=== PATIENT | female | born 1955 | race Caucasian/White ===

== ENCOUNTER 2019-02-15 12:31 | Emergency (ER) | payer MEDICARE, MEDICAID, SELFPAY ==
[2019-02-15] VITALS (7 sets, daily range): BP systolic 100–149; BP diastolic 60–70; PULSE 73–84; RESP 18–24; TEMP 37.1–38; O2SAT 94–99; BMI 36.8
--- NOTE | 2019-02-15 12:47 | DI.RAD.S_ITS ---
PROCEDURE: XR CHEST 2V INDICATIONS: Cough w/fever, hx of asthma. TECHNIQUE: 2 views of the chest were acquired. COMPARISON: [facility], , CHEST 1 VIEW, 02/07/2016, 19:00. FINDINGS: Surgical changes and devices: None. Lungs and pleura: Lungs are clear. No pleural effusions or pneumothorax. Mediastinum: Mediastinal contours are normal. Heart size is normal. Bones and chest wall: No suspicious bony abnormalities. Soft tissues appear unremarkable. IMPRESSION: Normal for age, source of current cough and fever symptoms is not seen. Dictated by: Gurvinder Green M.D. on 02/15/2019 at 13:44 Approved by: Gurvinder Green M.D. on 02/15/2019 at 13:54
[2019-02-15 13:28] LABS: Influenza A - CEPHEID Flu A NEGATIVE (NEGATIVE); Influenza B - CEPHEID Flu B NEGATIVE (NEGATIVE)
--- NOTE | 2019-02-15 14:14 | ED.FEVER ---
HPI - Fever <Gallito SAMM Bonner - Last Filed: 02/15/19 20:45> General Chief Complaint: Fever Stated Complaint: fever,achey,diarrhea,vomiting Time Seen by Provider: 02/15/19 14:13 Source: patient Mode of arrival: Ambulatory Limitations: no limitations History of Present Illness HPI Narrative: This is a 63-year-old female, smoker, who presents to ED withTwo days duration of joint pain, body aches, headaches, difficulty breathing which caused the panic attack this morning, nonproductive cough, fever with T-max of 101.9?, post-tussive vomiting and diarrhea. Patient reports has history of IBS and usually has diarrhea several times a day and denies since her bowel movement or frequency. Patient denies urinary symptoms. Patient has been self treating herself with Tylenol at home and had used albuterol inhaler 2 puffs twice this a.m. within 3 hour. Patient states is unable to tolerate NSAID/ Motrin products due to GI irritation. Patient contacted her primary care physician and was told to going to ED if patient is to use repeated inhaler treatment last than 4 hour. Patient states she lives alone and does not aware of exposure to illness. Patient has history of asthma and uses ProAir routinely. Related Data Home Medications Medication Instructions Recorded Confirmed albuterol sulfate [Proventil HFA] 2 puff INH Q4H PRN #0 02/07/16 02/15/19 hydrocodone-acetaminophen [Birdsnest] 1 tab PO TIDP PRN #0 02/07/16 02/15/19 Potassium Tablet 1 tab PO DAILY 02/15/19 02/15/19 atorvastatin 10 mg PO QPM 02/15/19 02/15/19 multivitamin 1 tab PO DAILY 02/15/19 02/15/19 Previous Rx's Medication Instructions Recorded omeprazole 20 mg PO DAILY 14 Days cap 02/15/19 omeprazole 20 mg PO DAILY 14 Days cap 02/15/19 ondansetron 4 mg PO Q6-8H PRN #7 tab 02/15/19 prednisone 20 mg PO DAILY 4 Days #8 tab 02/15/19 Allergies Allergy/AdvReac Type Severity Reaction Status Date / Time aspirin [ASPIRIN] Allergy Unknown RINGING IN Unverified 06/07/17 12:13 EARS Penicillins [PENICILLINS] Allergy Unknown ITCHING Unverified 06/07/17 12:13 Review of Systems <SAMM Gates - Last Filed: 02/15/19 20:45> Review of Systems Narrative: General: See HPI HEENT: Denies sinus pain, ear pain, sore throat, difficulty swallowing, dizziness. Respiratory: See HPI Cardiovascular: Denies chest pain, palpitations, orthopnea, edema. Gastrointestinal: Reports posttussive emesis and loose stool which is patient's baseline without change. Denies diarrhea, constipation, melena. : Denies dysuria, frequency, incontinence, hematuria, urinary retention. Musculoskeletal: Reports joint body aches. Denies weakness. Skin: Denies rash, skin lesions, or other. Neurologic: Denies weakness, headache, numbness, change in speech, confusion, seizures, incoordination. Psychiatric: No concerning psychosocial issues. 12-point review of systems is negative except for those stated above. Patient History <SAMM Gates - Last Filed: 02/15/19 20:45> Medical History Asthma (Acute) Hepatitis C (Acute) Osteoarthritis (Acute) Surgical History H/O knee surgery (Acute) H/O removal of neck cyst (Acute) History of bilateral tubal ligation (Acute) History of cholecystectomy (Acute) Social History Smoking Status: Current every day smoker Smoking Status: Current every day smoker Substance Use Type: does not use Exam <SAMM Gates - Last Filed: 02/15/19 20:45> Narrative Exam Narrative: GEN: Alert, oriented x 3, well nourished, and in no acute distress. Head: Normal cephalic, atraumatic. No scalp or temporal tenderness, palpable mass or rash. EYES: Pupils are equal, round, and reactive to light and accommodation. Extraocular muscles are intact bilaterally. There is no subconjunctival hemorrhage, exudate and sclera non-icteric. ENT: Bilateral auditory canals and tympanic membranes clear. Hearing grossly intact. Nose without bleeding, purulent discharge or deviation. Facial sinuses nontender to palpate. Mucous membrane moist, no mucosal lesion. Throat without erythema, tonsillar hypertrophy or exudate. Uvula in midline, airway patent. Neck: Trachea in midline. No JVD, non-tender without lymphadenopathy. No masses or thyroid megaly. Supple, non-tender and no meningeal signs. CARDIAC: Normal regular rate and rhythm without murmurs, gallops, or rubs. No chest wall tenderness. No peripheral edema, cyanosis or pallor. Capillary refill is less than 2 seconds. RESPIRATORY: Lungs expiratory wheezing in all lobes. Non-productive cough, no rales, or rhonchi appreciated. No stridor, respiratory distress, increase work of breathing, or accessary muscle used. ABD: Abdomen soft, nontender and non-distended. No guarding or rebound tenderness to palpate. Bowel sounds are normal in all 4 quadrants. There is no palpable masses or organomegaly. EXT: Full painless ROM of all extremities with no loss of sensation, strength, effusion or edema. SKIN: Warm, dry, normal color for patient. No erythema, lesions or rash over visible areas. BACK: Nontender without deformity or crepitance. No flank tenderness. NEUROLOGICAL: Alert and oriented to place, time and person. Sensation and motor function intact bilaterally. No facial droops, dysphasia. PSYCHIATRIC: Good judgement and reason, without hallucinations, abnormal affect or abnormal behaviors during the examination. Patient is not suicidal. Initial Vital Signs Initial Vital Signs: Vital Signs Temperature 99.9 F H 02/15/19 12:39 Pulse Rate 77 02/15/19 12:39 Respiratory Rate 24 02/15/19 12:39 Pulse Oximetry 94 02/15/19 12:39 <Solange Caba DO - Last Filed: 02/16/19 07:17> Initial Vital Signs Initial Vital Signs: Vital Signs Temperature 99.9 F H 02/15/19 12:39 Pulse Rate 77 02/15/19 12:39 Respiratory Rate 24 02/15/19 12:39 Pulse Oximetry 94 02/15/19 12:39 Course <SAMM Gates - Last Filed: 02/15/19 20:45> Orders Ordered: Discontinued Medications Acetaminophen (Tylenol) 650 mg PO NOW ONE Stop: 02/15/19 15:02 Last Admin: 02/15/19 15:09 Dose: 650 mg Documented by: MARGIE Albuterol (Ventolin) 2.5 mg INH NOW ONE Stop: 02/15/19 14:38 Last Admin: 02/15/19 14:45 Dose: 2.5 mg Documented by: DUDLEY Albuterol/Ipratropium (Duoneb) 3 ml INH NOW ONE Stop: 02/15/19 14:40 Last Admin: 02/15/19 14:45 Dose: 3 ml Documented by: DUDLEY Ondansetron HCl (Zofran Odt) 4 mg SL NOW ONE Stop: 02/15/19 14:40 Last Admin: 02/15/19 14:48 Dose: 4 mg Documented by: MARGIE Pantoprazole Sodium (Protonix) 20 mg PO NOW ONE Stop: 02/15/19 14:40 Last Admin: 02/15/19 15:01 Dose: Not Given Documented by: MARGIE Prednisone (Deltasone) 60 mg PO NOW ONE Stop: 02/15/19 14:40 Last Admin: 02/15/19 14:48 Dose: 60 mg Documented by: MARGIE Vital Signs Vital signs: Vital Signs - 8 hr 02/15/19 12:39 02/15/19 14:13 02/15/19 14:30 Temperature 99.9 F H 100.4 F H Pulse Rate 77 74 78 Respiratory Rate 24 18 Blood Pressure [Left Wrist] Blood Pressure [Right Arm] 149/70 H 140/63 Pulse Oximetry 94 99 98 02/15/19 14:45 02/15/19 15:09 02/15/19 15:36 Temperature 100.3 F H 98.8 F Pulse Rate 73 84 Respiratory Rate 18 18 Blood Pressure [Left Wrist] 100/60 Blood Pressure [Right Arm] Pulse Oximetry 97 98 02/15/19 16:07 Temperature 98.8 F Pulse Rate Respiratory Rate Blood Pressure [Left Wrist] Blood Pressure [Right Arm] Pulse Oximetry <Solange Caba, - Last Filed: 02/16/19 07:17> Orders Ordered: Discontinued Medications Acetaminophen (Tylenol) 650 mg PO NOW ONE Stop: 02/15/19 15:02 Last Admin: 02/15/19 15:09 Dose: 650 mg Documented by: MARGIE Albuterol (Ventolin) 2.5 mg INH NOW ONE Stop: 02/15/19 14:38 Last Admin: 02/15/19 14:45 Dose: 2.5 mg Documented by: DUDLEY Albuterol/Ipratropium (Duoneb) 3 ml INH NOW ONE Stop: 02/15/19 14:40 Last Admin: 02/15/19 14:45 Dose: 3 ml Documented by: DUDLEY Ondansetron HCl (Zofran Odt) 4 mg SL NOW ONE Stop: 02/15/19 14:40 Last Admin: 02/15/19 14:48 Dose: 4 mg Documented by: MARGIE Pantoprazole Sodium (Protonix) 20 mg PO NOW ONE Stop: 02/15/19 14:40 Last Admin: 02/15/19 15:01 Dose: Not Given Documented by: MARGIE Prednisone (Deltasone) 60 mg PO NOW ONE Stop: 02/15/19 14:40 Last Admin: 02/15/19 14:48 Dose: 60 mg Documented by: MARGIE Vital Signs Vital signs: Vital Signs - 8 hr 02/15/19 12:39 02/15/19 14:13 02/15/19 14:30 Temperature 99.9 F H 100.4 F H Pulse Rate 77 74 78 Respiratory Rate 24 18 Blood Pressure [Left Wrist] Blood Pressure [Right Arm] 149/70 H 140/63 Pulse Oximetry 94 99 98 02/15/19 14:45 02/15/19 15:09 02/15/19 15:36 Temperature 100.3 F H 98.8 F Pulse Rate 73 84 Respiratory Rate 18 18 Blood Pressure [Left Wrist] 100/60 Blood Pressure [Right Arm] Pulse Oximetry 97 98 02/15/19 16:07 Temperature 98.8 F Pulse Rate Respiratory Rate Blood Pressure [Left Wrist] Blood Pressure [Right Arm] Pulse Oximetry MDM - Fever <Gallito StacyJoy [facility] - Last Filed: 02/15/19 20:45> Differential Diagnosis Differential diagnosis: Likely community acquired pneumonia, viral infection, influenza and other (URI, bronchitis, asthma exacerbation) Medical Records Attestation: I reviewed the patient's medical records. Lab Data Attestation: I reviewed the patient's lab results. Labs: Lab Results 02/15/19 Range/Units 12:42 Influenza A (RT-PCR) Flu a negative (NEGATIVE) Influenza B (RT-PCR) Flu b negative (NEGATIVE) Imaging Data Chest x-ray: Radiologist's impression: [address] [address] XRay Report Signed Patient: Rosie Lewis [facility]#: [id number] : 6Acct:[id number] Age/Sex: 63 / FDate of Service: 02/15/19 Loc: ED Accession Number: [id number] Procedure: XR chest 2V Ordering Provider: Solange Caba D.O. PROCEDURE: XR CHEST 2V INDICATIONS: Cough w/fever, hx of asthma. TECHNIQUE: 2 views of the chest were acquired. COMPARISON: [facility], , CHEST 1 VIEW, 02/07/2016, 19:00. FINDINGS: Surgical changes and devices: None. Lungs and pleura: Lungs are clear. No pleural effusions or pneumothorax. Mediastinum: Mediastinal contours are normal. Heart size is normal. Bones and chest wall: No suspicious bony abnormalities. Soft tissues appear unremarkable. IMPRESSION: Normal for age, source of current cough and fever symptoms is not seen. Dictated by: Gurvinder Green M.D. on 02/15/2019 at 13:44 Approved by: Gurvinder Green M.D. on 02/15/2019 at 13:54 MDM Narrative Medical decision making narrative: This is a 63-year-old female who is current smoker and has history of asthma presents to ED with self reported fever, cough, breathing difficulty, body aches, headaches. Lung sounds were expiratory wheezing to auscultate in no all lobes with frequent coughing. Patient was medicated with prednisone for short burst course given patient's history and nebulizer treatment with DuoNeb and albuterol. Patient also was medicated with Tylenol for low-grade fever while in ED. patient was able to tolerate fluids without nausea or vomiting after Zofran administration. Due to GI sensitivity to steroids and NSAIDs, patient was medicated with Protonix p.o. while in ED. patient reports improved symptoms after the treatments. Flu swab test was negative today. Clear lungs without pneumothorax or pneumonia. Findings were discussed with the patient and patient advised to continue with supportive care with pushing fluids, rest and [id number] Tylenol use. Patient discharged to home with omeprazole, as needed Zofran and short course of prednisone. Patient informed it's okay to use albuterol inhaler infrequently last and every 4 hours with frequent coughing and wheezing. Spacer and teaching were completed by RT. Strict return precautions were discussed with the patient and advised to follow with PCP in 2-3 days. Patient verbalized understanding and agrees with the treatment plan. <Solange Caba, DO - Last Filed: 02/16/19 07:17> Lab Data Labs: Lab Results 02/15/19 Range/Units 12:42 Influenza A (RT-PCR) Flu a negative (NEGATIVE) Influenza B (RT-PCR) Flu b negative (NEGATIVE) Discharge Plan Departure Patient Disposition: Home Clinical Impression: Viral respiratory illness Discharge Date/Time: 02/15/19 16:38 Instructions: DI for Viral Upper Respiratory Infection -- Adult Activity Restrictions/Additional Instructions: You have been diagnosed with [viral illness. Chest x-ray does not show pneumonia. Flu swab was negative. You were treated with nebulizer treatment and Tylenol while in ED.]. What to do: *Take your medications as directed. Please continue with Tylenol for fever and discomfort. You can take up to 4000 mg in 24 hour. Please take prednisone once a day for next 4 days for airway inflammation. You can use albuterol 2 puffs every 4 hours as needed for frequent coughing and short of breath and wheezing. Take omeprazole for next 2 weeks for upset stomach which could be exacerbated by steroids. You can take Mucinex DM for dry or mucousy cough. Please hydrate adequately and increase your intake of fluids. Zofran as needed for nausea. *Follow up with your primary care provider in 2-3 days, call for an appointment. Let them know you were seen in the ED and that we asked you to be seen in follow up. *Return to ED if you have any new, worsening, or concerning symptoms, such as [chest pain, breathing difficulty, unable to tolerate fluids, high fever or any worsening symptoms.]. Prescriptions: New ondansetron 4 mg tablet,disintegrating 4 mg PO Q6-8H PRN (Reason: nausea and vomiting) Qty: 7 RF: 0 prednisone 20 mg tablet 20 mg PO DAILY 4 Days Qty: 8 RF: 0 omeprazole 20 mg capsule,delayed release(DR/EC) 20 mg PO DAILY 14 Days RF: 0 omeprazole 20 mg capsule,delayed release(DR/EC) 20 mg PO DAILY 14 Days RF: 0 No Action hydrocodone-acetaminophen [Birdsnest] 5 MG/325 MG tablet 1 tab PO TIDP PRN (Reason: chronic pain) Qty: 0 RF: 0 albuterol sulfate [Proventil HFA] 90 MCG/PUFF HFA aerosol inhaler 2 puff INH Q4H PRN (Reason: Shortness Of Breath) Qty: 0 RF: 0 atorvastatin 10 mg tablet 10 mg PO QPM RF: 0 multivitamin Tablet 1 tab PO DAILY RF: 0 Potassium Tablet 1 tab PO DAILY RF: 0 Referrals: Breezy Alford MD [Primary Care Provider] -
[2019-02-15] MEDS: ALBUTEROL/IPRATROPIUM 3 ML AMPUL INH (14:45)
[2019-02-15] MEDS: ALBUTEROL 2.5 MG/3 ML NEB (ADULT) INH (14:45)
[2019-02-15] MEDS: ONDANSETRON 4 MG ODT SL (14:48)
[2019-02-15] MEDS: predniSONE 20 MG TABLET 60 MG PO (14:48)
--- NOTE | 2019-02-15 14:49 | PC.NURSE ---
Pt ambulatory to room. mild labored breathing which increases with exertion. reports h/o asthma and a trach for 10 years which has since been removed. CXR obtained and negative findings. Lungs tight with exp wheezes throughout. 100% RA. Speaking in short sentences. RT called for neb. Pt very labored when taking PO pills. Pt reports feeling mild improvement post neb. wheezes still heard throughout on the L side although sounds to be having more air movement. temp 100.3 at triage. states last tylenol at 1130. pt unable to take ibuprofen.
[2019-02-15] MEDS: ACETAMINOPHEN 325 MG TABLET 650 MG PO (15:09)
== END 2019-02-15 16:38 | disposition home or self-care (01) ==
PROVIDERS: Emergency Medicine; Emergency Provider Nurse Practitioner Family; Family Provider Family Medicine; PCP Family Medicine
DX: J06.9 Acute upper respiratory infection, unspecified (principal)
CPT/HCPCS: 71046; 87502; 94150; 94640; 99281; 99283; J7613

== ENCOUNTER 2019-11-15 12:13 | Emergency (ER) | payer MEDICARE, MEDICAID, SELFPAY ==
[2019-11-15] VITALS (12 sets, daily range): BP systolic 138–188; BP diastolic 64–84; PULSE 51–64; RESP 9–20; TEMP 36.9; O2SAT 98–100; BMI 38.0
--- NOTE | 2019-11-15 12:53 | DI.CT.S_ITS ---
PROCEDURE: CT HEAD/BRAIN WO CON INDICATIONS: headache TECHNIQUE: Noncontrast 4.5 mm thick angled axial sections acquired from the foramen magnum to the vertex, with coronal and sagittal reformats. For radiation dose reduction, the following was used: automated exposure control, adjustment of mA and/or kV according to patient size. COMPARISON: None. FINDINGS: Image quality: Excellent. CSF spaces: Basal cisterns are patent. No extra-axial fluid collections. The ventricles are symmetric in size and shape. Brain: No intracranial bleeds or masses. There is cerebral volume loss for age, with resultant ventricular and sulcal prominence. There are periventricular and deep white matter chronic small vessel ischemic changes. There is intracranial internal carotid artery atherosclerosis. Skull and face: Calvarium and visualized facial bones appear intact, without suspicious lesions. Incidental note is made of hyperostosis frontalis. This is not considered to be pathologic in a woman of this age. Sinuses: Visualized sinuses and mastoids are clear. IMPRESSION: Unremarkable intracranial study, without an imaging explanation found for the patient's presenting history of headache. No acute intracranial hemorrhage is seen. No masses or mass effect can be seen. If it would be helpful for clinical management decision making, please consider a dedicated brain MRI for further evaluation (assuming that there is no contraindication). Dictated by: Kodak Moore M.D. on 11/15/2019 at 12:14 Approved by: Kodak Moore M.D. on 11/15/2019 at 12:15
--- NOTE | 2019-11-15 12:57 | ED_ITS ---
HPI - Headache General Chief Complaint: Headache Stated Complaint: headache, dark spots in eyes, flashes Time Seen by Provider: 11/15/19 12:24 Source: patient Mode of arrival: Ambulatory Limitations: no limitations History of Present Illness HPI Narrative: Patient is a 64-year-old female who presents with headache. She has started getting more frequent headaches over the last 1 month she gets some a few times a week and is usually able just to lie down and they go away. However she says this 1 is been ongoing for the last 4 or 5 days he was getting a little bit worse. She has photosensitivity and when it intensifies she has sound sensitivity as well. She has been seeing some spots in her left eye which started yesterday and she has been having some double vision and balance issues as well she occasionally has numbness down her right arm does not currently have numbness and she has no weakness. She denies any chest pain. She says her headache is usually behind her eyes however this 1 is in a slightly different spot more on the right side. MD Complaint: headache Quality: aching Related Data Home Medications Medication Instructions Recorded Confirmed albuterol sulfate [Proventil HFA] 2 puff INH Q4H PRN #0 02/07/16 02/15/19 hydrocodone-acetaminophen [[place]] 1 tab PO TIDP PRN #0 02/07/16 02/15/19 Potassium Tablet 1 tab PO DAILY 02/15/19 02/15/19 atorvastatin 10 mg PO QPM 02/15/19 02/15/19 multivitamin 1 tab PO DAILY 02/15/19 02/15/19 Previous Rx's Medication Instructions Recorded ondansetron 4 mg PO Q6-8H PRN #7 tab 02/15/19 Allergies Allergy/AdvReac Type Severity Reaction Status Date / Time aspirin [ASPIRIN] Allergy Unknown RINGING IN Verified 11/15/19 12:24 EARS Penicillins [PENICILLINS] Allergy Unknown ITCHING Verified 11/15/19 12:24 Review of Systems Review of Systems Narrative: GENERAL: Denies chills, fatigue, malaise, fever, sweats, travel HEENT: Photosensitivity, spots in left Denies sinus pain, ear pain, sore throat, difficulty swallowing, neck pain RESPIRATORY: Denies dyspnea, cough, wheezing, hemoptysis, sputum. CARDIOVASCULAR: Denies chest pain, palpitations, orthopnea, edema GASTROINTESTINAL: Denies nausea, vomiting, abdominal pain, diarrhea, constipation, melena. : Denies dysuria, frequency, incontinence, hematuria, urinary retention, flank pain. MUSCULOSKELETAL: Denies weakness, joint pain, or bony pain SKIN: No rash, no erythema, no pruritus NEUROLOGIC: See HPI PSYCHIATRIC: No concerning psychosocial issues. 12 point review of systems is negative except for those stated above and HPI Patient History Medical History Asthma (Acute) Hepatitis C (Acute) Osteoarthritis (Acute) Surgical History H/O knee surgery (Acute) H/O removal of neck cyst (Acute) History of bilateral tubal ligation (Acute) History of cholecystectomy (Acute) Social History Smoking Status: Current every day smoker Smoking Status: Current every day smoker alcohol intake frequency: holidays/special occasions only Substance Use Type: does not use Exam Initial Vital Signs Initial Vital Signs: Vital Signs Temperature 98.5 F 11/15/19 12:17 Pulse Rate 64 11/15/19 12:17 Respiratory Rate 16 11/15/19 12:17 Blood Pressure 188/78 H 11/15/19 12:17 Pulse Oximetry 100 11/15/19 12:17 GENERAL: Middle-aged female wearing sunglasses in room HEENT: Head atraumatic,EOMI, pupils reactive, face symmetric, moist mucous membranes CARDIOVASCULAR: Regular rate and rhythm without murmurs, rubs or gallops. RESPIRATORY: Breath sounds equal bilaterally, no wheezes rales or rhonchi. ABDOMEN: Soft, nontender. Normoactive bowel sounds all 4 quadrants. No guarding or rebound. EXTREMITIES: Normal range of motion, no clubbing or edema. Neurovascularly intact NEUROLOGICAL: Alert and oriented x4.Normal gait and speech. Cranial nerves II through XII grossly intact. Electrical Controls Assembler strength equal bilaterally lower leg extremity strength equal bilaterally SKIN: Warm, dry, no laceration, no petechiae, no rashes or lesions. Course Orders Ordered: ED Orders 11/15/19 12:20 Basic Metabolic Panel Stat Complete Blood Count AUTO DIFF Stat 11/15/19 12:53 CT head/brain wo con Stat Discontinued Medications Sodium Chloride (Normal Saline 0.9%) 1,000 mls @ 1,000 mls/hr IV BOLUS ONE Stop: 11/15/19 13:48 Last Infusion: 11/15/19 15:12 Dose: 0 mls/hr Documented by: Admin: 11/15/19 12:58 Dose: 1,000 mls/hr Documented by: TISHA Ketorolac Tromethamine (Toradol) 30 mg IV NOW ONE Stop: 11/15/19 13:32 Last Admin: 11/15/19 13:41 Dose: 30 mg Documented by: ELIJAH Vital Signs Vital signs: Vital Signs - 8 hr 11/15/19 12:17 11/15/19 12:19 11/15/19 12:20 Temperature 98.5 F Pulse Rate 64 64 Respiratory Rate 16 20 Blood Pressure 188/78 H 188/78 H Pulse Oximetry 100 100 11/15/19 12:30 11/15/19 12:31 11/15/19 13:20 Temperature Pulse Rate 53 L 51 L 58 L Respiratory Rate 11 L 9 L Blood Pressure 151/66 H Pulse Oximetry 98 98 98 11/15/19 13:21 11/15/19 13:30 11/15/19 13:41 Temperature Pulse Rate 55 L 52 L Respiratory Rate 18 10 L Blood Pressure 146/68 H 143/74 H 154/84 H Pulse Oximetry 98 99 11/15/19 14:00 11/15/19 14:30 11/15/19 15:05 Temperature Pulse Rate 52 L Respiratory Rate 10 L Blood Pressure 138/65 147/64 H 147/64 H Pulse Oximetry 100 MDM - Headache Lab Data Attestation: I reviewed the patient's lab results. Result diagrams: 11/15/19 12:20 11/15/19 12:20 Labs: Lab Results 11/15/19 11/15/19 Range/Units 12:20 12:20 WBC 9.7 (4.5-11.0) X10^3/uL RBC 5.21 H (4.0-5.2) X10^6/uL Hgb 16.3 H (12.0-16.0) g/dL Hct 48.0 H (36-46) % MCV 92.1 (80-100) fL MCH 31.3 (26-34) PG MCHC 34.0 (30-36) % RDW 13.1 (11.6-14.8) % Plt Count 226 (150-400) X10^3/uL Neut % (Auto) 59.7 (50-75) % Lymph % (Auto) 32.4 (25-40) % [place] % (Auto) 5.9 (3-14) % Eos % (Auto) 1.3 L (2-4) % Baso % (Auto) 0.7 (0-2) % Neut # (Auto) 5800 (5650-7102) /uL Lymph # (Auto) 3100 (8116-0095) /uL [place] # (Auto) 600 (0-900) /uL Eos # (Auto) 100 (0-450) /uL Baso # (Auto) 100 (0-100) /uL Sodium 140 (137-145) mmol/L Potassium 4.0 (3.4-5.1) mmol/L Chloride 101 (98-107) mmol/L Carbon Dioxide 31 (22-32) mmol/L BUN 16 (7-17) mg/dL Creatinine 0.65 (0.52-1.04) mg/dL Estimated GFR > 60.0 (>60) mL/min BUN/Creatinine Ratio 24.6 H (6-22) Glucose 96 (80-110) mg/dL Calcium 9.5 (8.4-10.2) mg/dL Imaging Data CT scan - head: Radiologist's Impression: PROCEDURE: CT HEAD/BRAIN WO CON INDICATIONS: headache TECHNIQUE: Noncontrast 4.5 mm thick angled axial sections acquired from the foramen magnum to the vertex, with coronal and sagittal reformats. For radiation dose reduction, the following was used: automated exposure control, adjustment of mA and/or kV according to patient size. COMPARISON: None. FINDINGS: Image quality: Excellent. CSF spaces: Basal cisterns are patent. No extra-axial fluid collections. The ventricles are symmetric in size and shape. Brain: No intracranial bleeds or masses. There is cerebral volume loss for age, with resultant ventricular and sulcal prominence. There are periventricular and deep white matter chronic small vessel ischemic changes. There is intracranial internal carotid artery atherosclerosis. Skull and face: Calvarium and visualized facial bones appear intact, without suspicious lesions. Incidental note is made of hyperostosis frontalis. This is not considered to be pathologic in a woman of this age. Sinuses: Visualized sinuses and mastoids are clear. IMPRESSION: Unremarkable intracranial study, without an imaging explanation found for the patient's presenting history of headache. No acute intracranial hemorrhage is seen. No masses or mass effect can be seen. If it would be helpful for clinical management decision making, please consider a dedicated brain MRI for further evaluation (assuming that there is no contraindication). Dictated by: Kodak Moore M.D. on 11/15/2019 at 12:14 ECG Data Attestation: I personally reviewed and interpreted this ECG as follows: Prior ECG tracings: available for review Interpretation: Normal sinus rhythm rate 57 p.r. interval 152 QRS [address] changes similar to previous EKG in 2016 MDM Narrative Medical decision making narrative: Patient headache is changing an abnormal. Head CT is negative. She is also having some floaters or for black spots in her left thigh. She denies any curtain her loading. She does have a history of a retinal detachment in the right eye earlier this year but this is little bit different. Bedside ultrasound does not show any retinal to had detachment or vitreous humor abnormality in either eye. She has no focal deficits her headache is significantly improved after Toradol. She is able ambulate to the restroom without difficulty. At this time discharge Discharge Plan Departure Patient Disposition: Home Clinical Impression: Migraine Discharge Date/Time: 11/15/19 15:05 Instructions: DI for Migraine Activity Restrictions/Additional Instructions: *You have been diagnosed with migraine headache *What to do: Recommend you talk with her primary care provider about possible evaluation by headache specialist and/or neurologist with increase in headaches. Head CT and blood work are overall reassuring today *Continue to take medications as directed *Follow up with your primary care provider in 2-3 days *Return to ER if you should have worsening headache visual changes weakness dif ficulty speaking or any new, worsening or concerning symptoms Prescriptions: No Action hydrocodone-acetaminophen [[place]] 5 MG/325 MG tablet 1 tab PO TIDP PRN (Reason: chronic pain) Qty: 0 RF: 0 albuterol sulfate [Proventil HFA] 90 MCG/PUFF HFA aerosol inhaler 2 puff INH Q4H PRN (Reason: Shortness Of Breath) Qty: 0 RF: 0 atorvastatin 10 mg tablet 10 mg PO QPM RF: 0 ondansetron 4 mg tablet,disintegrating 4 mg PO Q6-8H PRN (Reason: nausea and vomiting) Qty: 7 RF: 0 multivitamin Tablet 1 tab PO DAILY RF: 0 Potassium Tablet 1 tab PO DAILY RF: 0 Referrals: Breezy Alford MD [Primary Care Provider] -
[2019-11-15] MEDS: SODIUM CHLORIDE 0.9% 1,000 ML 1000 ML IV (12:58)
[2019-11-15 13:02] LABS: BUN Creatinine Ratio 24.6 (6-22); Blood Urea Nitrogen 16 mg/dL (7-17); Calcium 9.5 mg/dL (8.4-10.2); Carbon Dioxide 31 mmol/L (22-32); Chloride 101 mmol/L (98-107); Estimated Glomerular Filt Rate > 60.0 mL/min (>60); Glucose 96 mg/dL (80-110); HEMOLYSIS 16 (0-50); Sodium 140 mmol/L (137-145)
[2019-11-15 13:10] LABS: Add Manual Diff / Slide Review NO; Basophils Absolute Auto 100 /uL (0-100); Basophils Percent Auto 0.7 % (0-2); Eosinophils Absolute Auto 100 /uL (0-450); Eosinophils Percent Auto 1.3 % (2-4); Hemoglobin 16.3 g/dL (12.0-16.0); Lymphocytes Absolute Auto 3100 /uL (1100-4500); Lymphocytes Percent Auto 32.4 % (25-40); Mean Corpuscular Hemoglobin 31.3 PG (26-34); Mean Corpuscular Volume 92.1 fL (80-100); Monocytes Absolute Auto 600 /uL (0-900); Monocytes Percent Auto 5.9 % (3-14); Neutrophils Absolute Auto 5800 /uL (1500-7000); Neutrophils Percent Auto 59.7 % (50-75); Platelet Count 226 X10^3/uL (150-400); Red Blood Cell Count 5.21 X10^6/uL (4.0-5.2); Red Cell Distribution Width 13.1 % (11.6-14.8); White Blood Cell Count 9.7 X10^3/uL (4.5-11.0)
[2019-11-15] MEDS: KETOROLAC 60 MG/2 ML VIAL 30 MG IV (13:41)
== END 2019-11-15 15:05 | disposition home or self-care (01) ==
PROVIDERS: Emergency Provider Emergency Medicine; Family Provider Family Medicine; PCP Family Medicine
DX: G43.909 Migraine, unspecified, not intractable, without status migrainosus (principal); H53.9 Unspecified visual disturbance
CPT/HCPCS: 70450; 80048; 85025; 93005; 93010; 96361; 96374; 99284; J1885

== ENCOUNTER → 2019-12-06 12:05 | Outpatient (CLI) | payer MEDICARE, MEDICAID, SELFPAY ==
--- NOTE | 2019-12-06 | DI.RAD.S_ITS ---
PROCEDURE: XR CERVICAL SPINE 2V OR 3V INDICATIONS: NECK PAIN TECHNIQUE: 3 view(s) of the cervical spine were acquired. COMPARISON: None. FINDINGS: Bones: No fractures or dislocations to the T1 level. The lateral masses of C1 appear intact on the odontoid view. No suspicious bony lesions. Multilevel disc degeneration, severe at the C3-C4, C4-C5 and C5-C6 levels. Moderate multilevel mid and lower cervical spine facet joint arthropathy. Mild multilevel uncovertebral hypertrophy. Soft tissues: No prevertebral soft tissue swelling. Vascular calcifications indicate atherosclerosis. IMPRESSION: Multilevel spondylosis. Dictated by: Sj Duong [facility] Interpreted: Jose Salguero MD on 12/06/2019 at 13:13 Approved by: Jose Salguero M.D. on 12/06/2019 at 17:04
--- NOTE | 2019-12-06 | DI.CT.S_ITS ---
PROCEDURE: CT LUMBAR SPINE WO CON INDICATIONS: Radiculopathy, lumbar region TECHNIQUE: Noncontrast 3 mm thick sections acquired from the T12 level to the sacrum. Sagittal and coronal reformats were constructed. For radiation dose reduction, the following was used: automated exposure control. COMPARISON: [facility], CR, XR CERVICAL SPINE 2V OR 3V, 12/06/2019, 12:32. FINDINGS: Image quality: Excellent. Bones: No acute vertebral body compression fractures. No suspicious lytic or blastic bony lesions. Central spinal caliber is of normal overall caliber. No pars defects. There is accentuated lumbar lordosis noted. There is minimal retrolisthesis seen at L1-2 and L2-3, with mild grade 1 anterolisthesis at L4-5, without associated pars defects. Minimal anterolisthesis is seen at L5-S1. T11-T12: Moderate to severe loss of disc height is seen. Endplate irregularity and sclerosis can be seen. Vacuum disc phenomenon is seen at this level. Moderate generalized disc bulge is seen. There is mild to moderate bilateral neural foraminal narrowing seen, left worse than right. Mild central canal narrowing is seen. T12-L1: Normal. L1-L2: The disc height is well preserved. Mild generalized disc bulge is seen. Moderate bilateral neural foraminal narrowing is seen. Mild central canal narrowing is seen. L2-L3: The disc height is well preserved. Moderate generalized disc bulge is seen. Moderate bilateral neural foraminal narrowing is seen, right worse than left. Mild central canal narrowing is seen. L3-L4: The disc height is well preserved. At least moderate disc bulge is seen. Mild central canal narrowing is seen. Moderate facet hypertrophy is seen, left worse than right. There is moderate left-sided and [id number] right-sided neural foraminal narrowing seen. Moderate central canal narrowing is seen. L4-L5: Mild loss of disc height is seen. Moderate prominent disc bulge is seen. Prominent facet hypertrophy is seen. There is moderate to severe bilateral neural foraminal narrowing seen. Moderate to severe central canal narrowing is seen, as on series 3, image 65. L5-S1: The disc height is relatively well preserved. Mild to moderate disc bulge is seen, with a mild central disc protrusion. Prominent facet hypertrophy is seen at this level. There is at least moderate bilateral neural foraminal narrowing seen, left worse than right. Mild central canal narrowing is seen. Soft tissues: No retroperitoneal masses or hematomas. Visualized aorta is normal in caliber. Incidental note is made of a circumaortic left renal vein. Cholecystectomy clips are seen. IMPRESSION: Multiple levels of lumbar spine degenerative change are seen, which are most prominent at L4-5 and L5-S1. Accentuated lumbar lordosis is noted. Incidental note is made of: Circumaortic left renal vein Cholecystectomy clips Dictated by: Kodak Moore M.D. on 12/06/2019 at 15:36 Approved by: Kodak Moore M.D. on 12/06/2019 at 15:41
== END ==
PROVIDERS: Family Provider Family Medicine; PCP Family Medicine; Referring Provider Registered Nurse; Visit Provider Registered Nurse
DX: M47.26 Other spondylosis with radiculopathy, lumbar region (principal); M47.27 Other spondylosis with radiculopathy, lumbosacral region; M54.2 Cervicalgia; M47.812 Spondylosis without myelopathy or radiculopathy, cervical region; G89.29 Other chronic pain
CPT/HCPCS: 72040; 72131

== ENCOUNTER → 2020-07-11 12:27 | Outpatient (CLI) | payer MEDICARE, MEDICAID, SELFPAY ==
[2020-07-11 13:09] LABS: BUN Creatinine Ratio 21.7 (6-22); Blood Urea Nitrogen 15 mg/dL (7-17); Calcium 9.7 mg/dL (8.4-10.2); Carbon Dioxide 30 mmol/L (22-32); Chloride 104 mmol/L (98-107); Estimated Glomerular Filt Rate > 60.0 mL/min (>60); Glucose 114 mg/dL (80-110); HEMOLYSIS 21 (0-50); Sodium 140 mmol/L (137-145)
== END ==
PROVIDERS: Family Provider Family Medicine; PCP Family Medicine; Referring Provider Internal Medicine; Visit Provider Internal Medicine
DX: R10.12 Left upper quadrant pain (principal)
CPT/HCPCS: 36415; 80048

== ENCOUNTER → 2020-07-15 15:36 | Outpatient (CLI) | payer MEDICARE, MEDICAID, SELFPAY ==
--- NOTE | 2020-07-15 | DI.CT.S_ITS ---
PROCEDURE: CT ABDOMEN PELVIS W CON INDICATIONS: Left upper quadrant pain TECHNIQUE: After the administration of oral and intravenous contrast, 5 mm thick sections acquired from the diaphragms to the symphysis. 5 mm thick coronal and sagittal reformats were performed. For radiation dose reduction, the following was used: automated exposure control, adjustment of mA and/or kV according to patient size. COMPARISON: None. FINDINGS: Image quality: Excellent. ABDOMEN: Lung bases: There is mild atelectasis and scarring in the right middle lobe. Heart size is normal. Solid organs: Evaluation of the liver demonstrates no focal hepatic lesions. The gallbladder is surgically absent. Biliary system is non-dilated. Pancreas enhances normally. No peripancreatic fat stranding or fluid collections. No pancreatic duct dilatation. The spleen is normal in size. No adrenal nodules. There is pelvicaliectasis the renal collecting systems, mild to moderate on the left and mild on the right. The ureters are nondistended. There also likely bilateral parapelvic renal cysts. A small nonobstructing stone is demonstrated within the right kidney within the inferior pole measuring up to 0.3 cm. Peritoneum and bowel: Stomach, small bowel, and colon loops are normal in caliber and wall thickness. The appendix is normal in appearance. There is colonic diverticulosis without acute diverticulitis. No free fluid or air. Nodes and vessels: No retroperitoneal or mesenteric adenopathy. Aorta and inferior vena cava are normal in caliber. Miscellaneous: There are small ventral fat-containing hernias. PELVIS: Genitourinary: Bladder wall thickness is normal. Miscellaneous: No inguinal hernias or adenopathy. Bones: No suspicious bony lesions. No vertebral body compression fractures. IMPRESSION: 1. Bilateral pelvicaliectasis of the renal collecting systems without hydroureter. Findings are suggestive of chronic UPJ obstructions, mild to moderate on the left and mild on the right. There is also suggestion of associated parapelvic renal cysts. Consider further evaluation with a CT IVP. 2. Small nonobstructing left renal stone. No obstructing urinary stones identified. 3. Colonic diverticulosis without acute diverticulitis. Dictated by: Francisco Downey M.D. on 07/16/2020 at 9:46 Approved by: Francisco Doweny M.D. on 07/16/2020 at 10:17
== END ==
PROVIDERS: Family Provider Family Medicine; PCP Family Medicine; Referring Provider Family Medicine; Visit Provider Family Medicine
DX: R10.12 Left upper quadrant pain (principal); N20.0 Calculus of kidney; N28.89 Other specified disorders of kidney and ureter; K57.90 Diverticulosis of intestine, part unspecified, without perforation or abscess without bleeding
CPT/HCPCS: 74177; Q9967

== ENCOUNTER → 2020-09-11 11:03 | Outpatient (CLI) | payer MEDICARE, MEDICAID, SELFPAY ==
[2020-09-11 11:48] LABS: Estimated Glomerular Filt Rate > 60.0 mL/min (>60)
[2020-09-11 14:11] LABS: BUN Creatinine Ratio 27.4 (6-22); Blood Urea Nitrogen 17 mg/dL (7-17)
== END ==
PROVIDERS: Family Provider Family Medicine; PCP Family Medicine; Referring Provider Physician Assistant Medical; Visit Provider Physician Assistant Medical
DX: N13.30 Unspecified hydronephrosis (principal)
CPT/HCPCS: 36415; 82565; 84520

== ENCOUNTER → 2020-09-11 11:14 | Outpatient (CLI) | payer MEDICARE, MEDICAID, SELFPAY ==
--- NOTE | 2020-09-11 11:22 | DI.CT.S_ITS ---
PROCEDURE: CT ABDOMEN PELVIS WO/W CON INDICATIONS: Unspecified hydronephrosis TECHNIQUE: Optional 5 mm thick noncontrast images acquired from the diaphragm to the symphysis pubis. After the administration of intravenous contrast, 5 mm thick images acquired from the diaphragm to the symphysis pubis after a 10-minute delay. 2 mm thick coronal and sagittal reformats were then performed of the kidneys and ureters. For radiation dose reduction, the following was used: automated exposure control, adjustment of mA and/or kV according to patient size. COMPARISON: [facility], CT, CT ABDOMEN PELVIS W CON, 07/15/2020, 16:32. FINDINGS: Image quality: Excellent. Lung bases: There is right middle lobe scars and atelectasis. Heart size is normal. Tiny hiatal hernia. Urinary system: There is a 2 mm stone in the inferior pole of the left kidney. No hydronephrosis. Both kidneys are normal in size. There is normal bilateral renal enhancement. There are bilateral parapelvic renal cysts. Small hypodense cortical nodules in left kidney are also likely cysts. Renal calyces appear normal in morphology when filled with contrast. Opacified portions of both ureters demonstrate normal caliber. Bladder wall thickness is normal. No calcified bladder stones. Other solid organs: Liver is normal in size and enhancement. Gallbladder is surgically absent. Biliary system is non dilated. Pancreas enhances normally. Spleen is normal in size and enhancement. No adrenal nodules. Peritoneum and bowel: Bowel loops demonstrate normal wall thickness and caliber. There are numerous colonic diverticula, most constricted in sigmoid colon. No CT findings to suggest acute diverticulitis. No free fluid or air. Nodes and vessels: No retroperitoneal or mesenteric adenopathy by size criteria. Aorta and inferior vena cava are normal in size. Moderate atherosclerotic calcifications. Abdominal wall: There is a small fat containing ventral hernia and a small fat containing umbilical hernia. Pelvis: No pathologic free pelvic fluid. No inguinal hernias or adenopathy. Bones: No suspicious bony lesions. No vertebral body compression fractures. Grade 1 anterolisthesis of L4 on L5. There are [id number] degenerative changes in the lower thoracic spine and lumbar spine. IMPRESSION: 1. A 2 mm nonobstructive stone in the inferior pole of the left kidney. 2. Bilateral parapelvic renal cysts. No hydronephrosis. There is no findings to suggest UPJ obstruction. 3. Diverticulosis without diverticulitis. 4. A small fat containing ventral hernia. Dictated by: Becky Lima M.D. on 09/11/2020 at 15:10 Approved by: Becky Lima M.D. on 09/11/2020 at 15:19
== END ==
PROVIDERS: Family Provider Family Medicine; PCP Family Medicine; Referring Provider Physician Assistant Medical; Visit Provider Physician Assistant Medical
DX: N13.30 Unspecified hydronephrosis (principal); N20.0 Calculus of kidney; N28.1 Cyst of kidney, acquired; Z90.49 Acquired absence of other specified parts of digestive tract; K57.30 Diverticulosis of large intestine without perforation or abscess without bleeding; K43.9 Ventral hernia without obstruction or gangrene; K42.9 Umbilical hernia without obstruction or gangrene; M43.16 Spondylolisthesis, lumbar region
CPT/HCPCS: 36415; 74178; 82565; 84520; Q9967

== ENCOUNTER 2021-11-04 16:42 | Emergency (ER) | payer MEDICARE, SELFPAY ==
[2021-11-04 17:04] VITALS: BP 114/55; PULSE 68; RESP 18; TEMP 36.6; O2SAT 100
--- NOTE | 2021-11-04 18:35 | DI.US.S_ITS ---
PROCEDURE: US PERIPH VENOUS LOW EXTREM LT INDICATIONS: sent for DVT eval TECHNIQUE: Real-time imaging, as well as color and pulse Doppler interrogation, were performed of the lower extremity deep veins from the inguinal ligament to the popliteal fossa. COMPARISON: None. FINDINGS: The common femoral, femoral and popliteal veins are normally compressible, and free of intraluminal thrombus. Color and pulse Doppler demonstrate normal phasic intraluminal flow. There is normal augmentation response to distal compression maneuver. Calf veins are not well seen. IMPRESSION: No definitive DVT in the left lower extremity. Limited examination. The calf veins are not well visualized Dictated by: Becky Lima M.D. on 11/04/2021 at 19:31 Approved by: Becky Lima M.D. on 11/04/2021 at 19:32
--- NOTE | 2021-11-04 18:35 | ED.EXTPRO ---
HPI - Extremity Problem General Chief complaint: Extremity Problem,Nontraumatic Stated complaint: Told to get checked for DVT Time Seen by Provider: 11/04/21 20:02 Source: patient Mode of arrival: Ambulatory History of Present Illness HPI Narrative: 66-year-old female daily smoker with history of hypertension, hyperlipidemia and known peripheral vascular disease is followed by a vascular surgeon in [place] and presents at their request for evaluation of ongoing left thigh pain. She states that she is been evaluated at some point will likely need stenting of the vasculature of her left leg giving episodes of discoloration of her toes but thus far has not met surgical criteria. She is here today because of pain in her left low back which extends into her hip and anterior thigh. She denies any recent falls or trauma. She denies any numbness, tingling or weakness. She denies loss of control of bowel or bladder and has no lower extremity weakness. Related Data Home Medications Medication Instructions Recorded Confirmed albuterol sulfate 90 mcg/actuation 2 puff INH Q4H PRN Shortness Of 02/07/16 02/15/19 aerosol inhaler (Proventil HFA) Breath ##0 hydrocodone 5 mg-acetaminophen 325 1 tab PO TIDP PRN chronic pain ##0 02/07/16 02/15/19 mg tablet ([place]) Potassium Tablet 1 tab PO DAILY 02/15/19 02/15/19 atorvastatin 10 mg tablet 10 mg PO QPM 02/15/19 02/15/19 multivitamin 1 tab PO DAILY 02/15/19 02/15/19 Previous Rx's Medication Instructions Recorded ondansetron 4 mg disintegrating 4 mg PO Q6-8H PRN nausea and 02/15/19 tablet vomiting #7 tabs cyclobenzaprine 10 mg tablet 10 mg PO TID PRN muscle spasm #14 11/04/21 tabs gabapentin 300 mg capsule 300 mg PO BEDTIME #14 caps 11/04/21 methylprednisolone 4 mg tablets in See Rx Instructions PO .COMPLEX 11/04/21 a dose pack (Medrol (Krishna)) #21 ea Allergies Allergy/AdvReac Type Severity Reaction Status Date / Time aspirin [ASPIRIN] Allergy Unknown RINGING IN Verified 11/15/19 12:24 EARS Penicillins [PENICILLINS] Allergy Unknown ITCHING Verified 11/04/21 17:13 Review of Systems Review of Systems Narrative: GENERAL: Denies chills, fatigue, malaise, fever, sweats. HEENT: Denies sinus pain, ear pain, sore throat, difficulty swallowing, dizziness. RESPIRATORY: Denies dyspnea, cough, wheezing, hemoptysis, sputum. CARDIOVASCULAR: Denies chest pain, palpitations, orthopnea, edema, GASTROINTESTINAL: Denies nausea, vomiting, abdominal pain, diarrhea, constipation, melena. : Denies dysuria, frequency, incontinence, hematuria, urinary retention. MUSCULOSKELETAL: see HPI SKIN: Denies rash, skin lesions, or other NEUROLOGIC: Denies weakness, headache, numbness, change in speech, confusion, seizures, incoordination. PSYCHIATRIC: No concerning psychosocial issues. 12 point review of systems is negative except for those stated above Patient History Medical History Asthma Hepatitis C Osteoarthritis Surgical History H/O knee surgery H/O removal of neck cyst History of bilateral tubal ligation History of cholecystectomy Social History Smoking Status: Current every day smoker Smoking Status: Current every day smoker alcohol intake frequency: holidays/special occasions only Substance Use Type: does not use Exam Narrative Exam Narrative: GENERAL: [66] year old patient appears stated age. Well-developed patient, in mild distress. HEAD: Atraumatic. Normocephalic. EYES: Pupils equal round and reactive. Extraocular motions intact. No scleral icterus. No injection or drainage. ENT: Nose without bleeding, purulent drainage. Throat without erythema, tonsillar hypertrophy or exudate. Airway patent. NECK: Trachea midline. Non tender CARDIOVASCULAR: Regular rate and rhythm without murmurs, gallops, or rubs. RESPIRATORY: Clear to auscultation. Breath sounds equal bilaterally. No wheezes, rales, or rhonchi. GASTROINTESTINAL: Abdomen soft, non-tender, nondistended. EXTREMITIES: Patient complains of left lateral thigh pain, there is no erythema, swelling or pain on palpation. No saddle anesthesia or lower extremity weakness BACK: Nontender without deformity or crepitance. No flank tenderness. NEURO: AOx3. SKIN: No rash or erythema of visible areas Initial Vital Signs Initial Vital Signs: Vital Signs Temperature 97.9 F 11/04/21 17:04 Pulse Rate 68 11/04/21 17:04 Respiratory Rate 18 11/04/21 17:04 Blood Pressure 114/55 L 11/04/21 17:04 Pulse Oximetry 100 11/04/21 17:04 Oxygen Delivery Method 11/04/21 17:04 Course Orders Ordered: Discontinued Medications Cyclobenzaprine HCl (Cyclobenzaprine 10 Mg Tablet) 10 mg PO NOW ONE Stop: 11/04/21 20:19 Last Admin: 11/04/21 20:20 Dose: 10 mg Documented By: ZORA Gabapentin (Gabapentin 300 Mg Capsule) 300 mg PO NOW ONE Stop: 11/04/21 20:13 Last Admin: 11/04/21 20:17 Dose: 300 mg Documented By: ZORA Prednisone (Prednisone 20 Mg Tablet) 40 mg PO NOW ONE Stop: 11/04/21 20:13 Last Admin: 11/04/21 20:17 Dose: 40 mg Documented By: ZORA Vital Signs Vital signs: Vital Signs - 8 hr 11/04/21 17:04 Temperature 97.9 F Pulse Rate 68 Respiratory Rate 18 Blood Pressure 114/55 L Pulse Oximetry 100 Oxygen Delivery Method Room Air MDM - Extremity (Nontraumatic) Imaging Data US - DVT: Radiologist's Impression: [place] [address] Ultrasound Report Signed Patient: Rosie Lewis MR#: [id number] : 1955 Acct:[id number] Age/Sex: 66 / F Date of Service: 11/04/21 Loc: ED Accession Number: [id number] ?? Procedure: US periph venous low extrem lt Ordering Provider: Myron Garcia D.O. PROCEDURE:? US PERIPH VENOUS LOW EXTREM LT ? INDICATIONS:? sent for DVT eval ? TECHNIQUE:? Real-time imaging, as well as color and pulse Doppler interrogation, were performed of the lower extremity deep veins from the inguinal ligament to the popliteal fossa.? ? COMPARISON:? None. ? FINDINGS:? The common femoral, femoral and popliteal veins are normally compressible, and free of intraluminal thrombus.? Color and pulse Doppler demonstrate normal phasic intraluminal flow.? There is normal augmentation response to distal compression maneuver. ?Calf veins are not well seen. ? IMPRESSION:? No definitive DVT in the left lower extremity.? Limited examination.? The calf veins are not well visualized ? ? Dictated by: Becky Lima M.D. on 11/04/2021 at 19:31 ? ? Approved by: Becky Lima M.D. on 11/04/2021 at 19:32 ? MDM Narrative Medical decision making narrative: Patient with known peripheral vascular disease presents with ongoing low back, left hip and left lateral thigh pain in the absence of injury. There is no redness, warmth or swelling though DVT and cellulitis are considered. These are thought less likely given lack of erythema or swelling, lack of findings on imaging and lack of reproducible pain. She does have low back pain and radicular symptoms in the absence of any evidence of spinal cord or cauda equina involvement. Patient will follow closely with her vascular surgeon and she is been given prescriptions for a steroid taper as well as gabapentin. Return precautions discussed and questions answered to their apparent satisfaction Discharge Plan Departure Patient Disposition: Home Clinical Impression: Acute left lumbar radiculopathy Instructions: DI for Lumbar Radiculopathy Activity Restrictions/Additional Instructions: *You have been diagnosed with [left thigh pain most likely due to a lumbar radiculopathy. As we discussed cellulitis and clot were considered but thought unlikely given your exam and negative findings on the ultrasound.] *What to do: *Please continue to take your regular medications as directed. [ ]x New medication prescriptions sent to your pharmacy: [ [facility]] [ ] New medication written as a paper prescription [ ] No new medications given *Please follow up with your primary care provider in 2-3 days, call for an appointment. Let them know you were seen in the Emergency Department and that we ask that you be seen in follow up. We will electronically transmit a record of today's note if your PCP is in our system *Return to Emergency Department if you should have any new, worsening or concerning symptoms, such as [fever greater than 101 F, shaking chills, worsening pain, persistent vomiting or other bothersome symptoms] Prescriptions: New cyclobenzaprine 10 mg tablet 10 mg PO TID PRN (Reason: muscle spasm) Qty: 14 0RF gabapentin 300 mg capsule 300 mg PO BEDTIME Qty: 14 0RF methylprednisolone [Medrol (Krishna)] 4 mg tablets,dose pack See Rx Instructions .ROUTE .COMPLEX Qty: 21 0RF Rx Instructions: orally per package directions No Action hydrocodone-acetaminophen [[place]] 5 MG/325 MG tablet 1 tab PO TIDP PRN (Reason: chronic pain) Qty: 0 albuterol sulfate [Proventil HFA] 90 MCG/PUFF HFA aerosol inhaler 2 puff INH Q4H PRN (Reason: Shortness Of Breath) Qty: 0 atorvastatin 10 mg tablet 10 mg PO QPM Label Comments: TK 1 T PO QPM FOR CHOLESTEROL ondansetron 4 mg tablet,disintegrating 4 mg PO Q6-8H PRN (Reason: nausea and vomiting) Qty: 7 0RF multivitamin Tablet 1 tab PO DAILY Potassium Tablet 1 tab PO DAILY Label Comments: otc Referrals: Nona Butler DO [Primary Care Provider] - Visit Report Forms: Patient Portal/API
[2021-11-04] MEDS: GABAPENTIN 300 MG CAPSULE PO (20:17)
[2021-11-04] MEDS: predniSONE 20 MG TABLET 40 MG PO (20:17)
[2021-11-04] MEDS: CYCLOBENZAPRINE 10 MG TABLET PO (20:20)
== END 2021-11-04 20:21 | disposition home or self-care (01) ==
PROVIDERS: Emergency Provider Emergency Medicine; Family Provider Family Medicine; PCP Family Medicine
DX: M54.16 Radiculopathy, lumbar region (principal)
CPT/HCPCS: 93971; 99283

== ENCOUNTER 2022-03-10 10:48 | Emergency (ER) | payer MEDICARE, SELFPAY ==
[2022-03-10] VITALS (10 sets, daily range): BP systolic 121–164; BP diastolic 68–104; PULSE 54–65; RESP 20–22; TEMP 36.6; O2SAT 91–95
--- NOTE | 2022-03-10 10:56 | DI.RAD.S_ITS ---
PROCEDURE: XR CHEST 1V INDICATIONS: Shortness of breath TECHNIQUE: One view of the chest was acquired. COMPARISON: None. FINDINGS: Surgical changes and devices: None. Lungs and pleura: Lungs are clear. No pleural effusions or pneumothorax. Mediastinum: Mediastinal contours appear normal. Heart size is normal. Bones and chest wall: No suspicious bony lesions. Overlying soft tissues appear unremarkable. IMPRESSION: No acute process. Dictated by: Poornima Cespedes M.D. on 03/10/2022 at 11:33 Approved by: Poornima Cespedes M.D. on 03/10/2022 at 11:33
[2022-03-10] MEDS: ALBUTEROL/IPRATROPIUM 3 ML AMPUL INH (11:11)
[2022-03-10 11:15] LABS: Add Manual Diff / Slide Review NO; Basophils Absolute Auto 100 /uL (0-100); Basophils Percent Auto 0.6 % (0-2); Eosinophils Absolute Auto 100 /uL (0-450); Eosinophils Percent Auto 0.8 % (2-4); Hematocrit 43.1 % (36-46); Hemoglobin 14.6 g/dL (12.0-16.0); Lymphocytes Absolute Auto 1200 /uL (1100-4500); Mean Corpuscular HGB Conc 33.9 % (30-36); Mean Corpuscular Hemoglobin 30.7 PG (26-34); Mean Corpuscular Volume 90.6 fL (80-100); Monocytes Absolute Auto 1100 /uL (0-900); Monocytes Percent Auto 8.5 % (3-14); Neutrophils Absolute Auto 9900 /uL (1500-7000); Neutrophils Percent Auto 80.1 % (50-75); Platelet Count 190 X10^3/uL (150-400); Red Blood Cell Count 4.76 X10^6/uL (4.0-5.2); Red Cell Distribution Width 13.2 % (11.6-14.8); White Blood Cell Count 12.4 X10^3/uL (4.5-11.0)
--- NOTE | 2022-03-10 11:19 | ED_ITS ---
HPI - SOB/Dyspnea General Chief Complaint: Shortness of Breath/Dyspnea Stated Complaint: Sent by [facility] Congestion/fever/cough T-3 Time Seen by Provider: 03/10/22 11:08 Source: patient Mode of arrival: Ambulatory Limitations: no limitations History of Present Illness HPI Narrative: Patient is a 66-year-old female history of COPD hyperlipidemia, presenting today with 3 days of increasing difficulty breathing. She reports having body aches fevers chills and cough. She feels like she is gotten more short of breath over the last couple of days. She reports worsening orthopnea but no peripheral edema. She describes chest tightness no actual pain or palpitations. She has inhalers at home but they have not been helping. She is trying to cough but can not get anything up. Denies any abdominal pain nausea or vomiting no palpitations no flank pain. Related Data Home Medications Medication Instructions Recorded Confirmed albuterol sulfate 90 mcg/actuation 2 puff INH Q4H PRN Shortness Of 02/07/16 02/15/19 aerosol inhaler (Proventil HFA) Breath ##0 hydrocodone 5 mg-acetaminophen 325 1 tab PO TIDP PRN chronic pain ##0 02/07/16 02/15/19 mg tablet ([place]) Potassium Tablet 1 tab PO DAILY 02/15/19 02/15/19 atorvastatin 10 mg tablet 10 mg PO QPM 02/15/19 02/15/19 multivitamin 1 tab PO DAILY 02/15/19 02/15/19 Previous Rx's Medication Instructions Recorded ondansetron 4 mg disintegrating 4 mg PO Q6-8H PRN nausea and 02/15/19 tablet vomiting #7 tabs cyclobenzaprine 10 mg tablet 10 mg PO TID PRN muscle spasm #14 11/04/21 tabs gabapentin 300 mg capsule 300 mg PO BEDTIME #14 caps 11/04/21 methylprednisolone 4 mg tablets in See Rx Instructions PO .COMPLEX 11/04/21 a dose pack (Medrol (Krishna)) #21 ea albuterol sulfate 2.5 mg/3 mL 2.5 mg (3 mL) inhalation QID PRN 03/10/22 (0.083 %) solution for nebulization bronchospasm #75 mL doxycycline hyclate 100 mg capsule 100 mg PO BID #14 caps 03/10/22 prednisone 10 mg tablet 10 mg PO DAILY #30 tabs 03/10/22 Allergies Allergy/AdvReac Type Severity Reaction Status Date / Time Penicillins [PENICILLINS] Allergy Unknown ITCHING Verified 03/10/22 10:52 Review of Systems Review of Systems ROS Unobtainable: All systems reviewed & are unremarkable except as noted in HPI and below Patient History Medical History (Updated 03/10/22 @ 13:47 by Desi Cosme DO) Asthma Hepatitis C Osteoarthritis Surgical History H/O knee surgery H/O removal of neck cyst History of bilateral tubal ligation History of cholecystectomy Social History Smoking Status: Current every day smoker Smoking Status: Current every day smoker alcohol intake frequency: holidays/special occasions only Substance Use Type: does not use Exam Initial Vital Signs Initial Vital Signs: Vital Signs Temperature 97.9 F 03/10/22 10:52 Pulse Rate 61 03/10/22 10:52 Respiratory Rate 20 03/10/22 10:52 Blood Pressure 122/69 03/10/22 10:52 Pulse Oximetry 93 03/10/22 10:52 Oxygen Delivery Method 03/10/22 10:52 GENERAL: Alert pleasant 66-year-old female appears in [id number] respiratory distress HEENT: Head atraumatic,EOMI, pupils reactive, face symmetric, moist mucous membranes CARDIOVASCULAR: Regular rate and rhythm without murmurs, rubs or gallops. RESPIRATORY: Decreased breath sounds bilaterally wheezing speaks in 5 word sentences but is having some mild conversational dyspnea ABDOMEN: Soft, nontender. Normoactive bowel sounds all 4 quadrants. No guarding or rebound. EXTREMITIES: Normal range of motion, no clubbing or edema. Neurovascularly intact NEUROLOGICAL: Alert and oriented x4.Normal gait and speech. SKIN: Warm, dry, no laceration, no petechiae, no rashes or lesions. Course Orders Ordered: Discontinued Medications Albuterol (Albuterol 2.5 Mg/3 Ml Neb (Adult)) 2.5 mg INH [id number] PRN PRN Reason: Shortness Of Breath Last Admin: 03/10/22 11:30 Dose: 2.5 mg Documented By: SAT Albuterol/Ipratropium (Albuterol/Ipratropium 3 Ml Ampul) 3 ml INH Q1H PRN PRN Reason: Shortness Of Breath Last Admin: 03/10/22 11:11 Dose: 3 ml Documented By: SAT Methylprednisolone (Methylprednisolone 125 Mg/2 Ml Vial) 125 mg IV NOW ONE Stop: 03/10/22 11:21 Last Admin: 03/10/22 11:39 Dose: 125 mg Documented By: CTS Vital Signs Vital signs: Vital Signs - 8 hr 03/10/22 11:30 03/10/22 12:00 03/10/22 12:01 Pulse Rate 60 54 L 54 L Blood Pressure Pulse Oximetry 93 92 93 Oxygen Delivery Method 03/10/22 12:01 03/10/22 12:21 03/10/22 12:21 Pulse Rate 64 Blood Pressure 135/89 153/104 H Pulse Oximetry 92 Oxygen Delivery Method 03/10/22 13:53 Pulse Rate 65 Blood Pressure 121/68 Pulse Oximetry 91 Oxygen Delivery Method Room Air MDM - SOB/Dyspnea Lab Data Result diagrams: 03/10/22 11:06 03/10/22 11:06 Labs: Lab Results 03/10/22 03/10/22 03/10/22 Range/Units 10:52 11:06 11:06 WBC 12.4 H (4.5-11.0) X10^3/uL RBC 4.76 (4.0-5.2) X10^6/uL Hgb 14.6 (12.0-16.0) g/dL Hct 43.1 (36-46) % MCV 90.6 (80-100) fL MCH 30.7 (26-34) PG MCHC 33.9 (30-36) % RDW 13.2 (11.6-14.8) % Plt Count 190 (150-400) X10^3/uL Neut % (Auto) 80.1 H (50-75) % Lymph % (Auto) 10.0 L (25-40) % Sutter % (Auto) 8.5 (3-14) % Eos % (Auto) 0.8 L (2-4) % Baso % (Auto) 0.6 (0-2) % Neut # (Auto) 9900 H (7488-8787) /uL Lymph # (Auto) 1200 (2432-3038) /uL Sutter # (Auto) 1100 H (0-900) /uL Eos # (Auto) 100 (0-450) /uL Baso # (Auto) 100 (0-100) /uL PT 12.6 (10.1-12.7) SECONDS INR 1.1 (0.9-1.3) Sodium (137-145) mmol/L Potassium (3.4-5.1) mmol/L Chloride (98-107) mmol/L Carbon Dioxide (22-32) mmol/L BUN (7-17) mg/dL Creatinine (0.52-1.04) mg/dL Estimated GFR (>60) mL/min BUN/Creatinine Ratio (6-22) Glucose (80-110) mg/dL Lactate (0.7-2.1) mmol/L Calcium (8.4-10.2) mg/dL Total Bilirubin (0.2-1.3) mg/dL AST (14-36) IU/L ALT (<35) IU/L Alkaline Phosphatase (38-126) U/L Troponin I (0.01-0.034) ng/mL NT-Pro-B Natriuret Pep (<125) pg/mL Total Protein (6.3-8.2) g/dL Albumin (3.5-5.0) g/dL Globulin (1.7-4.1) g/dL Albumin/Globulin Ratio (1.0-2.8) Procalcitonin (<0.5) ng/mL SARS-CoV-2 (PCR) Negative (Negative) Influenza A (RT-PCR) Flu a negative (NEGATIVE) Influenza B (RT-PCR) Flu b negative (NEGATIVE) RSV (PCR) Negative (Negative) 03/10/22 03/10/22 03/10/22 Range/Units 11:06 11:06 11:06 WBC (4.5-11.0) X10^3/uL RBC (4.0-5.2) X10^6/uL Hgb (12.0-16.0) g/dL Hct (36-46) % MCV (80-100) fL MCH (26-34) PG MCHC (30-36) % RDW (11.6-14.8) % Plt Count (150-400) X10^3/uL Neut % (Auto) (50-75) % Lymph % (Auto) (25-40) % Sutter % (Auto) (3-14) % Eos % (Auto) (2-4) % Baso % (Auto) (0-2) % Neut # (Auto) (2260-4873) /uL Lymph # (Auto) (3157-9982) /uL Sutter # (Auto) (0-900) /uL Eos # (Auto) (0-450) /uL Baso # (Auto) (0-100) /uL PT (10.1-12.7) SECONDS INR (0.9-1.3) Sodium 137 (137-145) mmol/L Potassium 4.3 (3.4-5.1) mmol/L Chloride 101 (98-107) mmol/L Carbon Dioxide 27 (22-32) mmol/L BUN 11 (7-17) mg/dL Creatinine 0.57 (0.52-1.04) mg/dL Estimated GFR > 60 (>60) mL/min BUN/Creatinine Ratio 19.3 (6-22) Glucose 100 (80-110) mg/dL Lactate 1.1 (0.7-2.1) mmol/L Calcium 8.9 (8.4-10.2) mg/dL Total Bilirubin 0.5 (0.2-1.3) mg/dL AST 45 H (14-36) IU/L ALT 29 (<35) IU/L Alkaline Phosphatase 65 (38-126) U/L Troponin I < 0.012 (0.01-0.034) ng/mL NT-Pro-B Natriuret Pep 212 H (<125) pg/mL Total Protein 7.8 (6.3-8.2) g/dL Albumin 4.4 (3.5-5.0) g/dL Globulin 3.4 (1.7-4.1) g/dL Albumin/Globulin Ratio 1.3 (1.0-2.8) Procalcitonin 0.05 (<0.5) ng/mL SARS-CoV-2 (PCR) (Negative) Influenza A (RT-PCR) (NEGATIVE) Influenza B (RT-PCR) (NEGATIVE) RSV (PCR) (Negative) Imaging Data Chest x-ray: Radiologist's Impression: Sunburst,Susan Giovani MR#: [id number] : 1955 Acct:[id number] Age/Sex: 66 / F Date of Service: 03/10/22 Loc: ED Accession Number: [id number] ?? Procedure: XR chest 1V Ordering Provider: Desi Cosme D.O. PROCEDURE:? XR CHEST 1V ? INDICATIONS:? Shortness of breath ? TECHNIQUE:? One view of the chest was acquired.? ? COMPARISON:? None. ? FINDINGS:? ? Surgical changes and devices:? None.? ? Lungs and pleura:? Lungs are clear.? No pleural effusions or pneumothorax.? ? Mediastinum:? Mediastinal contours appear normal.? Heart size is normal.? ? Bones and chest wall:? No suspicious bony lesions.? Overlying soft tissues appear unremarkable.? ? IMPRESSION:? No acute process. ? ? Dictated by: Poornima Cespedes M.D. on 03/10/2022 at 11:33 ? ? Approved by: Poornima Cespedes M.D. on 03/10/2022 at 11:33 ? ECG Data Interpretation: Normal sinus rhythm rate 65 DE interval 148 QRS [address] changes no T- wave inversions similar to previous EKG in 2020 MDM Narrative Medical decision making narrative: Patient is a 66-year-old female history of COPD hyperlipidemia presenting today with cough and chest tightness. She received DuoNeb did actually help her breathing almost immediately. She is also given Solu-Medrol and a 2nd albuterol treatment. Overall resting much more comfortably significantly less tachypneic. Blood work does show mild leukocytosis with mild left shift electrolytes and kidney function are within normal limits procalcitonin 0.05 a lactate of 1.1. She is no evidence of sepsis. BNP was also 200 not suggestive of congestive heart failure. Not having symptoms of acute coronary syndrome although she is at risk. Her chest x-ray is negative for pneumonia. After bronchodilators work of breathing improved significantly however at rest she was pretty consistently 89%. Ambulation trial she did very well O2 went up and she wanted to go home. She has a nebulizer at home but without any albuterol. Will discharge her home on steroid taper antibiotics and albuterol MDM CC: Shortness of breath Complicating co-morbidities: COPD hyperlipidemia hypertension Corroborating data: Data collected from: [ ] Medical records reviewed: Previous ED visits Differential considered: COPD exacerbation, pneumonia, pneumothorax, pulmonary embolism, acute coronary syndrome, sepsis, congestive heart failure Exam documented above, pertinent findings include: Decreased breath sounds bilaterally tachypnea conversational dyspnea Lab Test results independently reviewed as above. Pertinent findings: As above Independently reviewed EKG as above Imaging studies independently reviewed: Consultations: None Treatments: Solu-Medrol bronchodilators Re-evaluations: Improved after bronchodilators Discussion: Patient has a history of smoking no official diagnosis of COPD however she improved significantly with bronchodilators and steroids. Other causes were considered however with significant improvement history of smoking this is most likely COPD exacerbation Diagnosis: COPD exacerbation Disposition: see below, along with detailed discharge instructions that have been reviewed with patient as well as indications for ED re-evaluation and additional outpatient follow up Discharge Plan Departure Patient Disposition: Home Clinical Impression: COPD exacerbation Instructions: Chronic Obstructive Pulmonary Disease Activity Restrictions/Additional Instructions: *You have been diagnosed with COPD exacerbation *What to do: At this time I hope that you start feeling better. Use your nebulizer every 4 hours for the next 1-2 days *Continue to take medications as directed--> SENT TO [facility] [place] Prednisone 40 mg for 3 days, 30 mg for 3 days, 20 mg for 3 days, 10 mg for 3 days Albuterol either inhaler or nebulizer every 4 hours if needed Doxycycline 100 mg twice a day for 7 days *Follow up with your primary care provider in 2-3 days or call [phone] *Return to ER if you should have increasing shortness of breath chest pain difficulty breathing or any new, worsening or concerning symptoms Prescriptions: New prednisone 10 mg tablet 10 mg PO DAILY Qty: 30 0RF Rx Instructions: day 1-3: 40 mg once a day day 4-6: 30 mg once a day day 7-9: 20 mg once a day day 10-12: 10 mg once a day doxycycline hyclate 100 mg capsule 100 mg PO BID Qty: 14 0RF albuterol sulfate 2.5 mg /3 mL (0.083 %) solution for nebulization 2.5 mg inhalation QID PRN (Reason: bronchospasm) Qty: 75 0RF No Action hydrocodone-acetaminophen [[place]] 5 MG/325 MG tablet 1 tab PO TIDP PRN (Reason: chronic pain) Qty: 0 albuterol sulfate [Proventil HFA] 90 MCG/PUFF HFA aerosol inhaler 2 puff INH Q4H PRN (Reason: Shortness Of Breath) Qty: 0 atorvastatin 10 mg tablet 10 mg PO QPM Label Comments: TK 1 T PO QPM FOR CHOLESTEROL ondansetron 4 mg tablet,disintegrating 4 mg PO Q6-8H PRN (Reason: nausea and vomiting) Qty: 7 0RF multivitamin Tablet 1 tab PO DAILY Potassium Tablet 1 tab PO DAILY Label Comments: otc cyclobenzaprine 10 mg tablet 10 mg PO TID PRN (Reason: muscle spasm) Qty: 14 0RF gabapentin 300 mg capsule 300 mg PO BEDTIME Qty: 14 0RF methylprednisolone [Medrol (Krishna)] 4 mg tablets,dose pack See Rx Instructions .ROUTE .COMPLEX Qty: 21 0RF Rx Instructions: orally per package directions Referrals: Wesley Díaz MD [Primary Care Provider] - Stand Alone Forms: Patient Portal/API
[2022-03-10 11:26] LABS: INR 1.1 (0.9-1.3); Prothrombin Time 12.6 SECONDS (10.1-12.7)
[2022-03-10 11:29] LABS: Lactate (Lactic Acid) 1.1 mmol/L (0.7-2.1)
[2022-03-10 11:30] LABS: Alanine Aminotransferase 29 IU/L (<35); Albumin 4.4 g/dL (3.5-5.0); Albumin Globulin Ratio 1.3 (1.0-2.8); Alkaline Phosphatase 65 U/L (38-126); Aspartate Aminotransferase 45 IU/L (14-36); BUN Creatinine Ratio 19.3 (6-22); Bilirubin Total 0.5 mg/dL (0.2-1.3); Blood Urea Nitrogen 11 mg/dL (7-17); Calcium 8.9 mg/dL (8.4-10.2); Carbon Dioxide 27 mmol/L (22-32); Chloride 101 mmol/L (98-107); Estimated Glomerular Filt Rate > 60 mL/min (>60); Globulin 3.4 g/dL (1.7-4.1); Glucose 100 mg/dL (80-110); HEMOLYSIS < 15 (0-50); Potassium 4.3 mmol/L (3.4-5.1); Sodium 137 mmol/L (137-145); Total Protein 7.8 g/dL (6.3-8.2)
[2022-03-10] MEDS: ALBUTEROL 2.5 MG/3 ML NEB (ADULT) INH (11:30)
[2022-03-10] MEDS: methylPREDNISolone 125 MG/2 ML VIAL IV (11:39)
[2022-03-10 11:42] LABS: NT-proBNP (BNP-Adult 18+) 212 pg/mL (<125); Troponin I < 0.012 ng/mL (0.01-0.034)
[2022-03-10 11:44] LABS: Influenza A - CEPHEID Flu A NEGATIVE (NEGATIVE); Influenza B - CEPHEID Flu B NEGATIVE (NEGATIVE); Respiratory Syncytial Virus Negative (Negative)
[2022-03-10 11:51] LABS: Procalcitonin 0.05 ng/mL (<0.5)
--- NOTE | 2022-03-10 12:27 | PC.NURSE ---
pt on arrival with tachypnea, pursed lipped breathing, wheezing with h/o asthma, and speaking in 2-3 word sentences. Received multiple neb treatments by RT with improvement. RR even and unlabored and wheezing and air movement has significantly improved.
[2022-03-10 12:41] LABS: COVID-19 CEPHEID 4-PLEX PCR Negative (Negative)
== END 2022-03-10 13:48 | disposition home or self-care (01) ==
PROVIDERS: Emergency Provider Emergency Medicine; Family Provider Family Medicine; PCP Internal Medicine
DX: J44.1 Chronic obstructive pulmonary disease with (acute) exacerbation (principal); Z20.822 Contact with and (suspected) exposure to COVID-19
CPT/HCPCS: 0241U; 36415; 71045; 80053; 83605; 83880; 84145; 84484; 85025; 85610; 87040; 93005; 93010; 94640; 96374; 99284; J2930; J7613

== ENCOUNTER 2022-03-15 15:14 | Emergency (ER) | payer MEDICARE, SELFPAY ==
[2022-03-15] VITALS (72 sets, daily range): BP systolic 118–232; BP diastolic 54–152; PULSE 42–103; RESP 15–33; TEMP 36.9; O2SAT 90–97; BMI 39.8
--- NOTE | 2022-03-15 15:24 | DI.RAD.S_ITS ---
PROCEDURE: XR CHEST 1V INDICATIONS: HTN, SOB TECHNIQUE: One view of the chest was acquired. COMPARISON: [facility], CR, XR CHEST 1V, 03/10/2022, 11:02. FINDINGS: Surgical changes and devices: None. Lungs and pleura: Lungs are clear. No pleural effusions or pneumothorax. Mediastinum: Mediastinal contours appear normal. Heart size is normal. Bones and chest wall: No suspicious bony lesions. Overlying soft tissues appear unremarkable. IMPRESSION: No acute pulmonary process. Dictated by: Ivonne Smith M.D. on 03/15/2022 at 16:42 Approved by: Ivonne Smith M.D. on 03/15/2022 at 16:42
--- NOTE | 2022-03-15 15:24 | DI.CT.S_ITS ---
PROCEDURE: CT HEAD/BRAIN WO CON INDICATIONS: severe LINDO TECHNIQUE: Noncontrast 4.5 mm thick angled axial sections acquired from the foramen magnum to the vertex, with coronal and sagittal reformats. For radiation dose reduction, the following was used: automated exposure control, adjustment of mA and/or kV according to patient size. COMPARISON: [facility], CT, CT HEAD/BRAIN WO CON, 11/15/2019, 12:57. FINDINGS: Image quality: Excellent. CSF spaces: Basal cisterns are patent. No extra-axial fluid collections. The ventricles are symmetric in size and shape. Brain: No intracranial bleeds or masses. There is cerebral volume loss for age, with resultant ventricular and sulcal prominence. There are periventricular and deep white matter chronic small vessel ischemic changes. There is intracranial internal carotid artery atherosclerosis. Skull and face: Calvarium and visualized facial bones appear intact, without suspicious lesions. Sinuses: Mild mucosal thickening is seen within the posterior maxillary sinuses. There is moderate mucosal thickening within the left sphenoid sinus. No abnormal fluid is seen within the mastoid air cells. IMPRESSION: No acute intracranial hemorrhage is seen. No acute intracranial process is seen. Paranasal sinus disease noted. Dictated by: Kodak Moore M.D. on 03/15/2022 at 15:19 Approved by: Kodak Moore M.D. on 03/15/2022 at 15:20
[2022-03-15] MEDS: LABETALOL 20 MG/4 ML SYRINGE IV (15:34)
[2022-03-15 15:41] LABS: Add Manual Diff / Slide Review NO; Basophils Absolute Auto 100 /uL (0-100); Basophils Percent Auto 0.7 % (0-2); Eosinophils Absolute Auto 0 /uL (0-450); Eosinophils Percent Auto 0.1 % (2-4); Hematocrit 46.8 % (36-46); Hemoglobin 15.4 g/dL (12.0-16.0); Lymphocytes Absolute Auto 2800 /uL (1100-4500); Lymphocytes Percent Auto 20.8 % (25-40); Mean Corpuscular HGB Conc 32.8 % (30-36); Mean Corpuscular Hemoglobin 29.7 PG (26-34); Mean Corpuscular Volume 90.6 fL (80-100); Monocytes Absolute Auto 900 /uL (0-900); Neutrophils Absolute Auto 9500 /uL (1500-7000); Neutrophils Percent Auto 71.4 % (50-75); Platelet Count 287 X10^3/uL (150-400); Red Blood Cell Count 5.17 X10^6/uL (4.0-5.2); White Blood Cell Count 13.4 X10^3/uL (4.5-11.0)
[2022-03-15 16:04] LABS: Alanine Aminotransferase 41 IU/L (<35); Alkaline Phosphatase 58 U/L (38-126); Aspartate Aminotransferase 44 IU/L (14-36); BUN Creatinine Ratio 28.3 (6-22); Bilirubin Total 0.5 mg/dL (0.2-1.3); Blood Urea Nitrogen 17 mg/dL (7-17); Calcium 10.1 mg/dL (8.4-10.2); Carbon Dioxide 33 mmol/L (22-32); Chloride 98 mmol/L (98-107); Estimated Glomerular Filt Rate > 60 mL/min (>60); Glucose 121 mg/dL (80-110); Potassium 4.5 mmol/L (3.4-5.1); Sodium 137 mmol/L (137-145); Total Protein 7.8 g/dL (6.3-8.2)
--- NOTE | 2022-03-15 16:10 | ED.HA ---
HPI - Headache <Myron Delacruzgopi DO - Last Filed: 03/16/22 12:01> General Chief Complaint: Headache Stated Complaint: sudden LINDO Time Seen by Provider: 03/15/22 15:24 Mode of arrival: EMS History of Present Illness HPI Narrative: 66-year-old female daily smoker with history of COPD and migraines as well as hyperlipidemia presents by EMS for evaluation of a sudden onset headache about 1 hour prior to arrival. She states that it is a 10/10 and seems to be worsened by bright lights and loud noise. She denies any neck pain, fever or chills. She has had nausea but no vomiting. She denies any trauma or use of blood thinners. She has no chest pain or shortness of breath. She denies any blurred vision, trouble speech or extremity numbness, tingling or weakness. Related Data Home Medications Medication Instructions Recorded Confirmed albuterol sulfate 90 mcg/actuation 2 puff INH Q4H PRN Shortness Of 02/07/16 02/15/19 aerosol inhaler (Proventil HFA) Breath ##0 hydrocodone 5 mg-acetaminophen 325 1 tab PO TIDP PRN chronic pain ##0 02/07/16 02/15/19 mg tablet ([place]) Potassium Tablet 1 tab PO DAILY 02/15/19 02/15/19 atorvastatin 10 mg tablet 10 mg PO QPM 02/15/19 02/15/19 multivitamin 1 tab PO DAILY 02/15/19 02/15/19 doxycycline hyclate 100 mg capsule 100 mg PO BID 03/15/22 03/15/22 hydrocodone 5 mg-acetaminophen 325 tab PO PRN PRN Pain, Moderate 03/15/22 mg tablet prednisone 10 mg tablet 10 mg PO TAPER 03/15/22 03/15/22 Previous Rx's Medication Instructions Recorded ondansetron 4 mg disintegrating 4 mg PO Q6-8H PRN nausea and 02/15/19 tablet vomiting #7 tabs cyclobenzaprine 10 mg tablet 10 mg PO TID PRN muscle spasm #14 11/04/21 tabs gabapentin 300 mg capsule 300 mg PO BEDTIME #14 caps 11/04/21 methylprednisolone 4 mg tablets in See Rx Instructions PO .COMPLEX 11/04/21 a dose pack (Medrol (Krishna)) #21 ea albuterol sulfate 2.5 mg/3 mL 2.5 mg (3 mL) inhalation QID PRN 03/10/22 (0.083 %) solution for nebulization bronchospasm #75 mL doxycycline hyclate 100 mg capsule 100 mg PO BID #14 caps 03/10/22 prednisone 10 mg tablet 10 mg PO DAILY #30 tabs 03/10/22 lisinopril 5 mg tablet 5 mg PO DAILY #14 tabs 03/15/22 Allergies Allergy/AdvReac Type Severity Reaction Status Date / Time Penicillins [PENICILLINS] Allergy Unknown ITCHING Verified 03/10/22 10:52 Review of Systems <Myron Garcia DO - Last Filed: 03/16/22 12:01> Review of Systems Narrative: GENERAL: See HPI HEENT: Denies sinus pain, ear pain, sore throat, difficulty swallowing, dizziness. RESPIRATORY: Denies dyspnea, cough, wheezing, hemoptysis, sputum. CARDIOVASCULAR: Denies chest pain, palpitations, orthopnea, edema, GASTROINTESTINAL: Denies nausea, vomiting, abdominal pain, diarrhea, constipation, melena. : Denies dysuria, frequency, incontinence, hematuria, urinary retention. MUSCULOSKELETAL: denies weakness, joint pain, or bony pain SKIN: Denies rash, skin lesions, or other NEUROLOGIC:see HPI PSYCHIATRIC: No concerning psychosocial issues. 12 point review of systems is negative except for those stated above Patient History <Myron Garcia DO - Last Filed: 03/16/22 12:01> Medical History (Updated 03/15/22 @ 21:05 by Dav Luevano MD) Asthma Hepatitis C Osteoarthritis Surgical History H/O knee surgery H/O removal of neck cyst History of bilateral tubal ligation History of cholecystectomy Social History Smoking Status: Current every day smoker Smoking Status: Current every day smoker alcohol intake frequency: holidays/special occasions only Substance Use Type: does not use Exam <Myron Garcia DO - Last Filed: 03/16/22 12:01> Narrative Exam Narrative: GENERAL: [66] year old patient appears stated age. Well-developed patient, in obvious distress, complaining of pain, requesting lights off, towel over eyes HEAD: Atraumatic. Normocephalic. EYES: Pupils equal round and reactive. Extraocular motions intact. No scleral icterus. No injection or drainage. ENT: Nose without bleeding, purulent drainage. Throat without erythema, tonsillar hypertrophy or exudate. Airway patent. NECK: Trachea midline. Non tender CARDIOVASCULAR: Regular rate and rhythm without murmurs, gallops, or rubs. RESPIRATORY: Clear to auscultation. Breath sounds equal bilaterally. No wheezes, rales, or rhonchi. GASTROINTESTINAL: Abdomen soft, non-tender, nondistended. EXTREMITIES: No edema or joint tenderness. BACK: Nontender without deformity or crepitance. No flank tenderness. NEURO: AOx3. SKIN: No rash or erythema of visible areas Initial Vital Signs Initial Vital Signs: Vital Signs Pulse Rate 71 03/15/22 15:19 Blood Pressure 232/109 H 03/15/22 15:19 Pulse Oximetry 93 03/15/22 15:19 <Dav Luevano MD - Last Filed: 03/16/22 06:51> Initial Vital Signs Initial Vital Signs: Vital Signs Pulse Rate 71 03/15/22 15:19 Blood Pressure 232/109 H 03/15/22 15:19 Pulse Oximetry 93 03/15/22 15:19 Course <Myron Garcia DO - Last Filed: 03/16/22 12:01> Orders Ordered: Discontinued Medications Doxycycline Hyclate (Doxycycline Hyclate 100 Mg Tablet) 100 mg PO NOW ONE Stop: 03/15/22 20:55 Last Admin: 03/15/22 21:12 Dose: Not Given Documented By: DANAE Ketorolac Tromethamine (Ketorolac 30 Mg/Ml Vial) 15 mg IV NOW ONE Stop: 03/15/22 17:19 Last Admin: 03/15/22 18:03 Dose: 15 mg Documented By: CARMEN Labetalol HCl (Labetalol 20 Mg/4 Ml Syringe) 20 mg IV NOW ONE; Protocol Stop: 03/15/22 15:25 Last Admin: 03/15/22 15:34 Dose: 20 mg Documented By: PROSPER Prednisone (Prednisone 20 Mg Tablet) 10 mg PO NOW ONE Stop: 03/15/22 20:54 Last Admin: 03/15/22 21:12 Dose: Not Given Documented By: DANAE Reevaluation(s) Reevaluation #1: Initial blood pressure significantly elevated, patient given labetalol in notes significant improvement down to the 130s, patient still having some pain but tremendously improved Vital Signs Vital signs: Vital Signs - 8 hr 03/15/22 15:34 03/15/22 15:48 03/15/22 15:19 Temperature 98.4 F Pulse Rate 65 103 H Respiratory Rate 24 Blood Pressure 209/152 H 232/109 H 232/109 H Pulse Oximetry 90 L Oxygen Delivery Method Room Air 03/15/22 15:19 03/15/22 15:25 03/15/22 15:29 Temperature Pulse Rate 71 Respiratory Rate 17 Blood Pressure 209/152 H Pulse Oximetry 93 95 Oxygen Delivery Method 03/15/22 15:29 03/15/22 15:33 03/15/22 15:35 Temperature Pulse Rate 60 71 54 L Respiratory Rate 17 Blood Pressure Pulse Oximetry 95 94 Oxygen Delivery Method 03/15/22 15:40 03/15/22 15:40 03/15/22 15:45 Temperature Pulse Rate 53 L 49 L Respiratory Rate 15 22 Blood Pressure 174/79 H Pulse Oximetry 94 92 Oxygen Delivery Method 03/15/22 15:46 03/15/22 15:46 03/15/22 15:50 Temperature Pulse Rate 49 L 48 L Respiratory Rate 22 Blood Pressure 157/76 H Pulse Oximetry 91 93 Oxygen Delivery Method 03/15/22 15:52 03/15/22 15:52 03/15/22 15:54 Temperature Pulse Rate 50 L 52 L Respiratory Rate 21 Blood Pressure 152/71 H Pulse Oximetry 94 94 Oxygen Delivery Method 03/15/22 15:54 03/15/22 15:55 03/15/22 16:00 Temperature Pulse Rate 50 L 51 L Respiratory Rate 22 23 Blood Pressure 149/74 H Pulse Oximetry 94 94 Oxygen Delivery Method 03/15/22 16:01 03/15/22 16:01 03/15/22 16:32 Temperature Pulse Rate 51 L 49 L Respiratory Rate 25 H Blood Pressure 136/62 154/73 H Pulse Oximetry 92 Oxygen Delivery Method 03/15/22 16:05 03/15/22 16:19 03/15/22 16:19 Temperature Pulse Rate 52 L 51 L Respiratory Rate 26 H 26 H Blood Pressure 148/67 H Pulse Oximetry 93 93 Oxygen Delivery Method 03/15/22 16:20 03/15/22 16:20 03/15/22 16:25 Temperature Pulse Rate 47 L 50 L Respiratory Rate 30 H 32 H Blood Pressure 163/69 H Pulse Oximetry 93 93 Oxygen Delivery Method 03/15/22 16:26 03/15/22 16:26 03/15/22 16:30 Temperature Pulse Rate 50 L Respiratory Rate 29 H Blood Pressure 152/70 H 154/73 H Pulse Oximetry 93 Oxygen Delivery Method 03/15/22 16:30 03/15/22 16:35 03/15/22 16:35 Temperature Pulse Rate 52 L 48 L Respiratory Rate 17 23 Blood Pressure 153/67 H Pulse Oximetry 95 92 Oxygen Delivery Method 03/15/22 16:40 03/15/22 16:40 03/15/22 16:45 Temperature Pulse Rate 46 L Respiratory Rate 17 Blood Pressure 155/67 H 159/77 H Pulse Oximetry 92 Oxygen Delivery Method 03/15/22 16:45 03/15/22 16:50 03/15/22 16:50 Temperature Pulse Rate 47 L 44 L Respiratory Rate 22 15 Blood Pressure 166/76 H Pulse Oximetry 93 92 Oxygen Delivery Method 03/15/22 16:55 03/15/22 16:56 03/15/22 16:56 Temperature Pulse Rate 48 L 43 L Respiratory Rate 19 26 H Blood Pressure 172/78 H Pulse Oximetry 92 93 Oxygen Delivery Method 03/15/22 17:00 03/15/22 17:01 03/15/22 17:01 Temperature Pulse Rate 46 L 45 L Respiratory Rate 23 23 Blood Pressure 172/77 H Pulse Oximetry 92 91 Oxygen Delivery Method 03/15/22 17:05 03/15/22 17:05 Temperature Pulse Rate 46 L Respiratory Rate 20 Blood Pressure 163/77 H Pulse Oximetry 90 L Oxygen Delivery Method <Dav Luevano MD - Last Filed: 03/16/22 06:51> Course Course Narrative: 7:[address] Garcia, awaiting for call back from vascular surgeon from [place]. Patient has established vascular surgeon that she sees. Blood pressure has improved. Patient will need to go home with lisinopril. No lumbar puncture indicated this time. He does not feel patient has meningitis or subarachnoid bleed. Blood pressure has improved significantly. Orders Ordered: Discontinued Medications Doxycycline Hyclate (Doxycycline Hyclate 100 Mg Tablet) 100 mg PO NOW ONE Stop: 03/15/22 20:55 Last Admin: 03/15/22 21:12 Dose: Not Given Documented By: DANAE Ketorolac Tromethamine (Ketorolac 30 Mg/Ml Vial) 15 mg IV NOW ONE Stop: 03/15/22 17:19 Last Admin: 03/15/22 18:03 Dose: 15 mg Documented By: CARMEN Labetalol HCl (Labetalol 20 Mg/4 Ml Syringe) 20 mg IV NOW ONE; Protocol Stop: 03/15/22 15:25 Last Admin: 03/15/22 15:34 Dose: 20 mg Documented By: PROSPER Prednisone (Prednisone 20 Mg Tablet) 10 mg PO NOW ONE Stop: 03/15/22 20:54 Last Admin: 03/15/22 21:12 Dose: Not Given Documented By: DANAE Vital Signs Vital signs: Vital Signs - 8 hr 03/15/22 15:34 03/15/22 15:48 03/15/22 15:19 Temperature 98.4 F Pulse Rate 65 103 H Respiratory Rate 24 Blood Pressure 209/152 H 232/109 H 232/109 H Pulse Oximetry 90 L Oxygen Delivery Method Room Air 03/15/22 15:19 03/15/22 15:25 03/15/22 15:29 Temperature Pulse Rate 71 Respiratory Rate 17 Blood Pressure 209/152 H Pulse Oximetry 93 95 Oxygen Delivery Method 03/15/22 15:29 03/15/22 15:33 03/15/22 15:35 Temperature Pulse Rate 60 71 54 L Respiratory Rate 17 Blood Pressure Pulse Oximetry 95 94 Oxygen Delivery Method 03/15/22 15:40 03/15/22 15:40 03/15/22 15:45 Temperature Pulse Rate 53 L 49 L Respiratory Rate 15 22 Blood Pressure 174/79 H Pulse Oximetry 94 92 Oxygen Delivery Method 03/15/22 15:46 03/15/22 15:46 03/15/22 15:50 Temperature Pulse Rate 49 L 48 L Respiratory Rate 22 Blood Pressure 157/76 H Pulse Oximetry 91 93 Oxygen Delivery Method 03/15/22 15:52 03/15/22 15:52 03/15/22 15:54 Temperature Pulse Rate 50 L 52 L Respiratory Rate 21 Blood Pressure 152/71 H Pulse Oximetry 94 94 Oxygen Delivery Method 03/15/22 15:54 03/15/22 15:55 03/15/22 16:00 Temperature Pulse Rate 50 L 51 L Respiratory Rate 22 23 Blood Pressure 149/74 H Pulse Oximetry 94 94 Oxygen Delivery Method 03/15/22 16:01 03/15/22 16:01 03/15/22 16:32 Temperature Pulse Rate 51 L 49 L Respiratory Rate 25 H Blood Pressure 136/62 154/73 H Pulse Oximetry 92 Oxygen Delivery Method 03/15/22 16:05 03/15/22 16:19 03/15/22 16:19 Temperature Pulse Rate 52 L 51 L Respiratory Rate 26 H 26 H Blood Pressure 148/67 H Pulse Oximetry 93 93 Oxygen Delivery Method 03/15/22 16:20 03/15/22 16:20 03/15/22 16:25 Temperature Pulse Rate 47 L 50 L Respiratory Rate 30 H 32 H Blood Pressure 163/69 H Pulse Oximetry 93 93 Oxygen Delivery Method 03/15/22 16:26 03/15/22 16:26 03/15/22 16:30 Temperature Pulse Rate 50 L Respiratory Rate 29 H Blood Pressure 152/70 H 154/73 H Pulse Oximetry 93 Oxygen Delivery Method 03/15/22 16:30 03/15/22 16:35 03/15/22 16:35 Temperature Pulse Rate 52 L 48 L Respiratory Rate 17 23 Blood Pressure 153/67 H Pulse Oximetry 95 92 Oxygen Delivery Method 03/15/22 16:40 03/15/22 16:40 03/15/22 16:45 Temperature Pulse Rate 46 L Respiratory Rate 17 Blood Pressure 155/67 H 159/77 H Pulse Oximetry 92 Oxygen Delivery Method 03/15/22 16:45 03/15/22 16:50 03/15/22 16:50 Temperature Pulse Rate 47 L 44 L Respiratory Rate 22 15 Blood Pressure 166/76 H Pulse Oximetry 93 92 Oxygen Delivery Method 03/15/22 16:55 03/15/22 16:56 03/15/22 16:56 Temperature Pulse Rate 48 L 43 L Respiratory Rate 19 26 H Blood Pressure 172/78 H Pulse Oximetry 92 93 Oxygen Delivery Method 03/15/22 17:00 03/15/22 17:01 03/15/22 17:01 Temperature Pulse Rate 46 L 45 L Respiratory Rate 23 23 Blood Pressure 172/77 H Pulse Oximetry 92 91 Oxygen Delivery Method 03/15/22 17:05 03/15/22 17:05 Temperature Pulse Rate 46 L Respiratory Rate 20 Blood Pressure 163/77 H Pulse Oximetry 90 L Oxygen Delivery Method [facility] <Myron Garcia, DO - Last Filed: 03/16/22 12:01> Lab Data Result diagrams: 03/15/22 15:25 03/15/22 15:25 Labs: Lab Results 03/15/22 03/15/22 03/15/22 Range/Units 15:25 15:25 15:35 WBC 13.4 H (4.5-11.0) X10^3/uL RBC 5.17 (4.0-5.2) X10^6/uL Hgb 15.4 (12.0-16.0) g/dL Hct 46.8 H (36-46) % MCV 90.6 (80-100) fL MCH 29.7 (26-34) PG MCHC 32.8 (30-36) % RDW 13.0 (11.6-14.8) % Plt Count 287 (150-400) X10^3/uL Neut % (Auto) 71.4 (50-75) % Lymph % (Auto) 20.8 L (25-40) % [place] % (Auto) 7.0 (3-14) % Eos % (Auto) 0.1 L (2-4) % Baso % (Auto) 0.7 (0-2) % Neut # (Auto) 9500 H (6789-3522) /uL Lymph # (Auto) 2800 (4227-1141) /uL [place] # (Auto) 900 (0-900) /uL Eos # (Auto) 0 (0-450) /uL Baso # (Auto) 100 (0-100) /uL Sodium 137 (137-145) mmol/L Potassium 4.5 (3.4-5.1) mmol/L Chloride 98 (98-107) mmol/L Carbon Dioxide 33 H (22-32) mmol/L BUN 17 (7-17) mg/dL Creatinine 0.60 (0.52-1.04) mg/dL Estimated GFR > 60 (>60) mL/min BUN/Creatinine Ratio 28.3 H (6-22) Glucose 121 H (80-110) mg/dL Calcium 10.1 (8.4-10.2) mg/dL Magnesium 2.0 (1.6-2.3) mg/dL Total Bilirubin 0.5 (0.2-1.3) mg/dL AST 44 H (14-36) IU/L ALT 41 H (<35) IU/L Alkaline Phosphatase 58 (38-126) U/L NT-Pro-B Natriuret Pep 296 H (<125) pg/mL Total Protein 7.8 (6.3-8.2) g/dL Urine RBC 1-5/hpf (0-5/HPF) Urine WBC 0-1/hpf (0-5/HPF) Ur Squamous Epith Cells 0-1 /hpf (0-5/HPF) Urine Bacteria Few (2-10) H (None) Urine Dip Bedside Urine Glucose Negative Bedside Urine Bilirubin - Negative Bedside Urine Ketone - Negative Urine Specific Whitman 1.015 Bedside Urine Occult Blood + Bedside Urine pH 7.5 Bedside Urine Protein - Negative Bedside Urine Urobilinogen - Negative Bedside Urine Nitrite - Negative Bedside Urine Leukocytes - Negative Esterase Imaging Data CT scan - head: Radiologist's Impression: [address] [address] [address] Scan Report Signed Patient: oRsie Lewis MR#: [id number] : 1955 Acct:[id number] Age/Sex: 66 / F Date of Service: 03/15/22 Loc: ED Accession Number: [id number] ?? Procedure: CT head/brain wo con Ordering Provider: Myron Garcia D.O. PROCEDURE:? CT HEAD/BRAIN WO CON ? INDICATIONS:? severe LINDO ? TECHNIQUE:? Noncontrast 4.5 mm thick angled axial sections acquired from the foramen magnum to the vertex, with coronal and sagittal reformats.? For radiation dose reduction, the following was used:? automated exposure control, adjustment of mA and/or kV according to patient size.? ? COMPARISON:? [facility], CT, CT HEAD/BRAIN WO CON, 11/15/2019, 12:57. ? FINDINGS:? Image quality:? Excellent.? ? CSF spaces:? Basal cisterns are patent.? No extra-axial fluid collections.? The ventricles are symmetric in size and shape.? ? Brain:? No intracranial bleeds or masses.? There is cerebral volume loss for age, with resultant ventricular and sulcal prominence.? There are periventricular and deep white matter chronic small vessel ischemic changes.? There is intracranial internal carotid artery atherosclerosis.? ? Skull and face:? Calvarium and visualized facial bones appear intact, without suspicious lesions.? ? Sinuses:? Mild mucosal thickening is seen within the posterior maxillary sinuses.? There is moderate mucosal thickening within the left sphenoid sinus. No abnormal fluid is seen within the mastoid air cells. ? ? IMPRESSION:? No acute intracranial hemorrhage is seen.? ? No acute intracranial process is seen.? Chest x-ray: Radiologist's Impression: [address] [address] [address] Scan Report Signed Patient: Rosie Lewis MR#: [id number] : 1955 Acct:[id number] Age/Sex: 66 / F Date of Service: 03/15/22 Loc: ED Accession Number: [id number] ?? Procedure: CT head/brain wo con Ordering Provider: Myron Garcia D.O. PROCEDURE:? CT HEAD/BRAIN WO CON ? INDICATIONS:? severe LINDO ? TECHNIQUE:? Noncontrast 4.5 mm thick angled axial sections acquired from the foramen magnum to the vertex, with coronal and sagittal reformats.? For radiation dose reduction, the following was used:? automated exposure control, adjustment of mA and/or kV according to patient size.? ? COMPARISON:? [facility], CT, CT HEAD/BRAIN WO CON, 11/15/2019, 12:57. ? FINDINGS:? Image quality:? Excellent.? ? CSF spaces:? Basal cisterns are patent.? No extra-axial fluid collections.? The ventricles are symmetric in size and shape.? ? Brain:? No intracranial bleeds or masses.? There is cerebral volume loss for age, with resultant ventricular and sulcal prominence.? There are periventricular and deep white matter chronic small vessel ischemic changes.? There is intracranial internal carotid artery atherosclerosis.? ? Skull and face:? Calvarium and visualized facial bones appear intact, without suspicious lesions.? ? Sinuses:? Mild mucosal thickening is seen within the posterior maxillary sinuses.? There is moderate mucosal thickening within the left sphenoid sinus. No abnormal fluid is seen within the mastoid air cells. ? ? IMPRESSION:? No acute intracranial hemorrhage is seen.? ? No acute intracranial process is seen.? <Dav Luevano MD - Last Filed: 03/16/22 06:51> Lab Data Labs: Lab Results 03/15/22 03/15/22 03/15/22 Range/Units 15:25 15:25 15:35 WBC 13.4 H (4.5-11.0) X10^3/uL RBC 5.17 (4.0-5.2) X10^6/uL Hgb 15.4 (12.0-16.0) g/dL Hct 46.8 H (36-46) % MCV 90.6 (80-100) fL MCH 29.7 (26-34) PG MCHC 32.8 (30-36) % RDW 13.0 (11.6-14.8) % Plt Count 287 (150-400) X10^3/uL Neut % (Auto) 71.4 (50-75) % Lymph % (Auto) 20.8 L (25-40) % [place] % (Auto) 7.0 (3-14) % Eos % (Auto) 0.1 L (2-4) % Baso % (Auto) 0.7 (0-2) % Neut # (Auto) 9500 H (7277-6345) /uL Lymph # (Auto) 2800 (0207-8213) /uL [place] # (Auto) 900 (0-900) /uL Eos # (Auto) 0 (0-450) /uL Baso # (Auto) 100 (0-100) /uL Sodium 137 (137-145) mmol/L Potassium 4.5 (3.4-5.1) mmol/L Chloride 98 (98-107) mmol/L Carbon Dioxide 33 H (22-32) mmol/L BUN 17 (7-17) mg/dL Creatinine 0.60 (0.52-1.04) mg/dL Estimated GFR > 60 (>60) mL/min BUN/Creatinine Ratio 28.3 H (6-22) Glucose 121 H (80-110) mg/dL Calcium 10.1 (8.4-10.2) mg/dL Magnesium 2.0 (1.6-2.3) mg/dL Total Bilirubin 0.5 (0.2-1.3) mg/dL AST 44 H (14-36) IU/L ALT 41 H (<35) IU/L Alkaline Phosphatase 58 (38-126) U/L NT-Pro-B Natriuret Pep 296 H (<125) pg/mL Total Protein 7.8 (6.3-8.2) g/dL Urine RBC 1-5/hpf (0-5/HPF) Urine WBC 0-1/hpf (0-5/HPF) Ur Squamous Epith Cells 0-1 /hpf (0-5/HPF) Urine Bacteria Few (2-10) H (None) Urine Dip Bedside Urine Glucose Negative Bedside Urine Bilirubin - Negative Bedside Urine Ketone - Negative Urine Specific [place] 1.015 Bedside Urine Occult Blood + Bedside Urine pH 7.5 Bedside Urine Protein - Negative Bedside Urine Urobilinogen - Negative Bedside Urine Nitrite - Negative Bedside Urine Leukocytes - Negative Esterase Imaging Data CTA - brain/neck: Radiologist's Impression: [address] [address] [address] Scan Report Signed Patient: Rosie Lewis MR#: [id number] : 1955 Acct:[id number] Age/Sex: 66 / F Date of Service: 03/15/22 Loc: ED Accession Number: [id number] ?? Procedure: CT angio head and neck Ordering Provider: Myron Garcia D.O. PROCEDURE:? CT ANGIO HEAD AND NECK ? INDICATIONS:? severe headache, vision ? TECHNIQUE:? Noncontrast images were performed earlier in the day and not repeated.? ? After the administration of intravenous contrast, 1 mm thick sections acquired from the aortic arch through the [place] of Garcia.? Post-contrast 4.5 mm thick sections then re-acquired from the foramen magnum to the vertex.? 3-dimensional mluhuno-mrrzmdfku-cxyglifuot (MIP) and/or volume rendering reformats were acquired of the central intracranial vasculature and neck separately. For radiation dose reduction, the following was used:? automated exposure control, adjustment of mA and/or kV according to patient size.? ? COMPARISON:? [facility], CT, CT HEAD/BRAIN WO CON, 11/15/2019, 12:57.? [facility], CT, CT HEAD/BRAIN WO CON, 03/15/2022, 16:14. ? FINDINGS:? Image quality:? Excellent.? ? BRAIN:? CSF spaces:? Ventricles are normal in size and shape.? Basal cisterns are patent.? No extra-axial fluid collections.? ? Brain:? No midline shift.? No intracranial bleeds or masses.? Barr-white matter interface appears intact.? ? Skull and face:? Calvarium and facial bones appear intact, without suspicious lesions.? Orbits appear normal.? ? Sinuses:? Sinuses and mastoids are clear.? ? HEAD CT ANGIOGRAPHY:? Anterior circulation:? Intracranial internal carotid arteries are normal in size and flow.? The flow within the paired anterior cerebral arteries is normal and symmetric.? The flow within the middle cerebral arteries is normal and symmetric.? The anterior communicating artery is seen.? No aneurysms are seen.? ? Posterior circulation:? Visualized portions of the vertebral arteries demonstrate normal caliber, and join to form a normal appearing basilar artery.? Flow within the posterior cerebral arteries is normal and symmetric.? No aneurysms are seen.? ? NECK CT ANGIOGRAPHY:? Carotid system:? The great vessels demonstrate a conventional anatomy as they arise from the aortic arch.? The origins of the common carotid arteries appear patent.? The common carotid arteries demonstrate normal caliber and courses.? The bifurcation regions are both widely patent.? The internal carotid arteries demonstrate normal calibers.? There is tortuosity of the right internal carotid artery, which is highly medialized, as seen on series 9, image 88.? ? The left subclavian artery is occluded, as demonstrated series 9, image 107 and on series 8, image 144. ? Posterior circulation:? The origins of the vertebral arteries both appear widely patent.? Incidental note is made of a direct origin of the left vertebral artery from the aortic arch, which is considered to be a normal developmental variant.? The more superior extracranial portions of both vertebral arteries also demonstrate normal courses and calibers.? The right vertebral artery is dominant to the left. ? Soft tissues:? Visualized neck soft tissues demonstrate no suspicious abnormalities.? ? Bones:? No suspicious bony lesions.? Visualized cervical spine appears normally aligned.? Moderate to prominent cervical spine degenerative change can be seen. ? ? IMPRESSION:? No significant intracranial arterial abnormality is seen.? ? Within the arteries of the neck, no hemodynamically significant stenosis can be seen. ? ? 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 ? ? Additional findings:? Tortuous right internal carotid artery, which is highly medialized Right vertebral artery dominant to the left Direct origin of the left vertebral artery from the aortic arch Moderate to prominent cervical spine degenerative change ? Note: Case discussed by telephone with Dr. Garcia at 5:08 p.m. [place] time on March 15, 2022. ? ? Any quantitative measurements of stenosis were performed using NASCET criteria.? ? ? Dictated by: Kdoak Moore M.D. on 03/15/2022 at 17:03 ? ? Approved by: Kodak Moore M.D. on 03/15/2022 at 17:11 ? Treatment and disposition Social Determinants of Health that impact treatment or disposition: None Code Status and discussions:: Full code MDM Narrative Medical decision making narrative: 66-year-old female daily smoker with history of COPD and migraines as well as hyperlipidemia presents by EMS for evaluation of a sudden onset headache about 1 hour prior to arrival. She states that it is a 10/10 and seems to be worsened by bright lights and loud noise. She denies any neck pain, fever or chills. She has had nausea but no vomiting. She denies any trauma or use of blood thinners. She has no chest pain or shortness of breath. She denies any blurred vision, trouble speech or extremity numbness, tingling or weakness. 8:57 p.m.. I did review CBC CMP, did show leukocytosis, slightly elevated ALT and AST. CT angiogram did show occluded left subclavian artery. I reviewed these findings with patient and family. Also informed them I spoke with Dr. Enrique, vascular surgery with [facility] partners with her vascular surgeon. 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 No history of radiation or chemotherapy to her left subclavian artery area. Please note patient is on steroids from visit here recently 5 days ago for COPD exacerbation. Likely source of leukocytosis [facility] CC: ?Headache ? Data collected from: Patient and family ? Medical records reviewed: ?Visit here 5 days ago for COPD exacerbation ? Differential considered: ?Subarachnoid bleed/meningitis/hypertensive urgency but not limited to these diagnoses/differentials ? Exam documented above, pertinent findings include: No meningeal sign ? Lab Test results independently reviewed as above. Pertinent findings: Please see above for lab review ? Imaging studies independently reviewed: CT angiogram head and neck were reviewed and does show occluded left subclavian artery, CT head as well as chest x-ray ? Consultations: 8:55 p.m.. I did speak with Dr. Enrique, vascular surgeon at [facility] in reviewed CT angiogram head and neck and left subclavian artery occlusion, likely incidental. Or possible arteritis. Patient can be followed up outpatient with her vascular surgeon. No indication for admission or intervention at this time. ? Treatments: Patient did improve with blood pressure medication ? Re-evaluations: Headache free, blood pressure has improved ? Discussion: Reviewed with patient and vascular surgeon, appropriate for discharge home. Will discharge home with lisinopril. Patient has family doctor she can follow up with as well as established vascular surgeon. Return precautions reviewed with her. ? Diagnosis: Headache/high blood pressure ? Disposition: see below, along with detailed discharge instructions that have been reviewed with patient as well as indications for ED re-evaluation and additional outpatient follow up Discharge Plan Departure Patient Disposition: Home Clinical Impression: Headache, Hypertension Instructions: DI for High Blood Pressure, DI for Headache Activity Restrictions/Additional Instructions: No driving operating machinery tonight. Prescription for lisinopril 5 mg daily has been printed for you to continue tomorrow. Please see your family doctor this week for re-evaluation your blood pressure. Please call your vascular surgeon tomorrow to make appointment for follow-up evaluation and review of the CT scan that shows a blocked left subclavian artery which is likely incidental finding. We did review this with Dr. Enrique, vascular surgeon on-call for your surgeon ramo. This can be followed up in the office for re-evaluation. Return if worse if any questions or concerns. May continue home medications. Prescriptions: New lisinopril 5 mg tablet 5 mg PO DAILY Qty: 14 0RF No Action hydrocodone-acetaminophen [Casco] 5 MG/325 MG tablet 1 tab PO TIDP PRN (Reason: chronic pain) Qty: 0 albuterol sulfate [Proventil HFA] 90 MCG/PUFF HFA aerosol inhaler 2 puff INH Q4H PRN (Reason: Shortness Of Breath) Qty: 0 doxycycline hyclate 100 mg capsule 100 mg PO BID Label Comments: TAKE 1 CAPSULE BY MOUTH TWICE DAILY prednisone 10 mg tablet 10 mg PO TAPER Label Comments: Patient is on day 5 on 03/15/2022 Rx Instructions: 4 daily for 3 days, 3 daily for 3 days, 2 daily for 3 days, 1 daily for 3 days. hydrocodone-acetaminophen 5-325 mg tablet PO PRN MDD 4 PRN (Reason: Pain, Moderate) Label Comments: TAKE 1 TABLET BY MOUTH EVERY 6 HOURS NEEDED . START ON 01/20/22 atorvastatin 10 mg tablet 10 mg PO QPM Label Comments: TK 1 T PO QPM FOR CHOLESTEROL ondansetron 4 mg tablet,disintegrating 4 mg PO Q6-8H PRN (Reason: nausea and vomiting) Qty: 7 0RF multivitamin Tablet 1 tab PO DAILY Potassium Tablet 1 tab PO DAILY Label Comments: otc cyclobenzaprine 10 mg tablet 10 mg PO TID PRN (Reason: muscle spasm) Qty: 14 0RF gabapentin 300 mg capsule 300 mg PO BEDTIME Qty: 14 0RF methylprednisolone [Medrol (Krishna)] 4 mg tablets,dose pack See Rx Instructions .ROUTE .COMPLEX Qty: 21 0RF Rx Instructions: orally per package directions prednisone 10 mg tablet 10 mg PO DAILY Qty: 30 0RF Rx Instructions: day 1-3: 40 mg once a day day 4-6: 30 mg once a day day 7-9: 20 mg once a day day 10-12: 10 mg once a day doxycycline hyclate 100 mg capsule 100 mg PO BID Qty: 14 0RF albuterol sulfate 2.5 mg /3 mL (0.083 %) solution for nebulization 2.5 mg inhalation QID PRN (Reason: bronchospasm) Qty: 75 0RF Referrals: Wesley Díaz MD [Primary Care Provider] - Stand Alone Forms: Patient Portal/API
[2022-03-15 16:13] LABS: NT-proBNP (BNP-Adult 18+) 296 pg/mL (<125)
[2022-03-15 16:45] LABS: Bacteria Urine Few (2-10); RBC Urine 1-5/HPF (0-5/HPF); Squamous Epithelial Cell Urine 0-1 /HPF (0-5/HPF); WBC Urine 0-1/HPF (0-5/HPF)
--- NOTE | 2022-03-15 17:11 | PC.NURSE ---
sat patient up high fowlers due to oxygen saturation 98% room air
--- NOTE | 2022-03-15 17:18 | DI.CT.S_ITS ---
PROCEDURE: CT ANGIO HEAD AND NECK INDICATIONS: severe headache, vision TECHNIQUE: Noncontrast images were performed earlier in the day and not repeated. After the administration of intravenous contrast, 1 mm thick sections acquired from the aortic arch through the [place] of Garcia. Post-contrast 4.5 mm thick sections then re-acquired from the foramen magnum to the vertex. 3-dimensional updcujx-dvwfcbqqi-qcovnbcjlv (MIP) and/or volume rendering reformats were acquired of the central intracranial vasculature and neck separately. For radiation dose reduction, the following was used: automated exposure control, adjustment of mA and/or kV according to patient size. COMPARISON: [facility], CT, CT HEAD/BRAIN WO CON, 11/15/2019, 12:57. [facility], CT, CT HEAD/BRAIN WO CON, 03/15/2022, 16:14. FINDINGS: Image quality: Excellent. BRAIN: CSF spaces: Ventricles are normal in size and shape. Basal cisterns are patent. No extra-axial fluid collections. Brain: No midline shift. No intracranial bleeds or masses. Barr-white matter interface appears intact. Skull and face: Calvarium and facial bones appear intact, without suspicious lesions. Orbits appear normal. Sinuses: Sinuses and mastoids are clear. HEAD CT ANGIOGRAPHY: Anterior circulation: Intracranial internal carotid arteries are normal in size and flow. The flow within the paired anterior cerebral arteries is normal and symmetric. The flow within the middle cerebral arteries is normal and symmetric. The anterior communicating artery is seen. No aneurysms are seen. Posterior circulation: Visualized portions of the vertebral arteries demonstrate normal caliber, and join to form a normal appearing basilar artery. Flow within the posterior cerebral arteries is normal and symmetric. No aneurysms are seen. NECK CT ANGIOGRAPHY: Carotid system: The great vessels demonstrate a conventional anatomy as they arise from the aortic arch. The origins of the common carotid arteries appear patent. The common carotid arteries demonstrate normal caliber and courses. The bifurcation regions are both widely patent. The internal carotid arteries demonstrate normal calibers. There is tortuosity of the right internal carotid artery, which is highly medialized, as seen on series 9, image 88. The left subclavian artery is occluded, as demonstrated series 9, image 107 and on series 8, image 144. Posterior circulation: The origins of the vertebral arteries both appear widely patent. Incidental note is made of a direct origin of the left vertebral artery from the aortic arch, which is considered to be a normal developmental variant. The more superior extracranial portions of both vertebral arteries also demonstrate normal courses and calibers. The right vertebral artery is dominant to the left. Soft tissues: Visualized neck soft tissues demonstrate no suspicious abnormalities. Bones: No suspicious bony lesions. Visualized cervical spine appears normally aligned. Moderate to prominent cervical spine degenerative change can be seen. IMPRESSION: No significant intracranial arterial abnormality is seen. Within the arteries of the neck, no hemodynamically significant stenosis can be seen. 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 Additional findings: Tortuous right internal carotid artery, which is highly medialized Right vertebral artery dominant to the left Direct origin of the left vertebral artery from the aortic arch Moderate to prominent cervical spine degenerative change Note: Case discussed by telephone with Dr. Garcia at 5:08 p.m. [place] time on March 15, 2022. Any quantitative measurements of stenosis were performed using NASCET criteria. Dictated by: Kodak Moore M.D. on 03/15/2022 at 17:03 Approved by: Kodak Moore M.D. on 03/15/2022 at 17:11
[2022-03-15] MEDS: KETOROLAC 30 MG/ML VIAL 15 MG IV (18:03)
[2022-03-18 16:10] LABS: Albumin 4.3 g/dL (3.5-5.0); Albumin Globulin Ratio 1.2 (1.0-2.8); Globulin 3.5 g/dL (1.7-4.1)
[2022-03-18 16:11] LABS: HEMOLYSIS 55 (0-50)
== END 2022-03-15 21:25 | disposition home or self-care (01) ==
PROVIDERS: Emergency Medicine; Emergency Provider Emergency Medicine; Family Provider Family Medicine; PCP Internal Medicine
DX: R51.9 Headache, unspecified (principal); I10 Essential (primary) hypertension; Z79.899 Other long term (current) drug therapy
CPT/HCPCS: 36415; 70450; 70496; 70498; 71045; 80053; 81003; 81015; 83735; 83880; 85025; 87086; 93005; 96374; 96375; 99284; J1885; Q9967

== ENCOUNTER → 2023-05-17 | Outpatient (CLI) | payer MEDICARE, SELFPAY ==
--- NOTE | 2023-05-17 | DI.RAD.S_ITS ---
PROCEDURE: XR HIP W PEL IF DONE RT 2V INDICATIONS: RIGHT HIP PAIN TECHNIQUE: 2 views of the hip were acquired. COMPARISON: None. FINDINGS: Bones: No fractures or dislocations. No suspicious bony lesions. The visualized pelvic ring appears intact. Mild nonuniform joint space narrowing with osteophytic lipping of the acetabulum. Soft tissues: No suspicious soft tissue calcifications or masses. IMPRESSION: No acute bony abnormality. Mild hip osteoarthritis. Dictated by: Romario Leonard M.D. on 05/17/2023 at 16:44 Approved by: Romario Leonard M.D. on 05/17/2023 at 16:44
--- NOTE | 2023-05-17 14:02 | DI.MG.S_ITS ---
BILATERAL DIGITAL SCREENING MAMMOGRAM 3D/2D WITH CAD: 05/17/2023 CLINICAL: Baseline exam. Routine screening. No prior exams were available for comparison. Both breasts are almost entirely fatty (category a/<25% glandular tissue). Current study was also evaluated with a Computer Aided Detection (CAD) system. No significant masses, calcifications, or other findings are seen in either breast. IMPRESSION: NEGATIVE There is no mammographic evidence of malignancy. A 1 year screening mammogram is recommended. Based on the Tyrer Cuzick model (a risk assessment model) the patient's lifetime risk is 2.6% and her 10 year risk is 1.3%. According to the ACR, ACS, and NCCN guidelines, an annual breast MRI exam along with mammogram is recommended if the patient's lifetime risk is 20% or greater. This exam was interpreted at Station ID: [id number]. NOTE: For mammograms, a report in lay terms will be sent to the patient. Approximately 15% of breast malignancies will not be visualized mammographically. In the management of a palpable breast mass, a negative mammogram must not discourage biopsy of a clinically suspicious lesion. Electronically Signed By: Jacinto roe/[email or web address]:05/17/2023 20:41:01 letter sent: Normal Exam ACR BI-RADS Category 1: Negative [id number]
--- NOTE | 2023-05-17 14:02 | DI.RAD.S_ITS ---
Bone Density Report Name: LEONIE CLARK Age: 67 Sex: Female Ethnicity: White Date of : 1955 Indication: postmenopausal; screening for osteoporosis; Referring Provider: GARRY STRONG Study: Bone densitometry was performed. Exam Date: May 17, 2023 Accession number: [id number] Bone Density: Region BMD T-score Z-score Classification AP Spine(L1-L4) 1.124 0.7 2.6 Normal Femoral Neck (Left) 0.717 -1.2 0.5 Osteopenia Total Hip (Left) 0.920 -0.2 1.2 Normal Femoral Neck (Right) 0.785 -0.6 1.1 Normal Total Hip (Right) 0.901 -0.3 1.0 Normal Total Hip Mean 0.910 -0.3 1.1 Normal World Health Organization criteria for BMD impression classify patients as: Normal (T-score at or above -1.0), Osteopenia (T-score between -1.0 and -2.5), or Osteoporosis (T-score at or below -2.5). 10-year Fracture Risk(1): Major Osteoporotic Fracture 7.9% Hip Fracture 0.7% Reported Risk Factors: [place] (), Neck BMD=0.717, BMI=39.9 (1) FRAX(R) Version 3.08. Fracture probability calculated for an untreated patient. Fracture probability may be lower if the patient has received treatment. Impression: The patient has low bone mass, based on the Left Femoral Neck T-score. The patient has an estimated ten-year risk of hip fracture of 0.7% and an estimated ten-year risk of major fracture of 7.9%, based on the WHO FRAX algorithm. Discussion: BONE DENSITY IS LOW AT ONE OR MORE SKELETAL SITES. This patient's lowest T-score is low at one or more skeletal sites. It meets the World Health Organization's (WHO) criteria for low bone mass (T-score between -1.0 and -2.5). The patient's 10-year risk of fracture as calculated by FRAX is less than the threshold where pharmacological therapy is recommended by the National Osteoporosis Foundation (NOF). However, all treatment decisions require clinical judgment and consideration of individual patient factors, including patient preferences, comorbidities, previous drug use, risk factors not captured in the FRAX model (e.g., frailty, falls, vitamin D deficiency, increased bone turnover, interval significant decline in bone density) and possible under or overestimation of fracture risk by FRAX. The patient should follow a healthful lifestyle (good nutrition with adequate calcium and vitamin D, and appropriate weight-bearing exercise). Follow-Up: Consider repeating this study in 2 to 3 years to reassess this patient's status, or sooner if there is some new clinical indication. Reported by: MARISA OROZCO MD on 05/17/2023 3:17:00 PM.
== END ==
PROVIDERS: Family Provider Family Medicine; PCP Internal Medicine; Referring Provider Physician Assistant; Visit Provider Physician Assistant
DX: Z12.31 Encounter for screening mammogram for malignant neoplasm of breast (principal); Z78.0 Asymptomatic menopausal state; R92.313 Mammographic fatty tissue density, bilateral breasts; M85.852 Other specified disorders of bone density and structure, left thigh; M16.11 Unilateral primary osteoarthritis, right hip; M25.551 Pain in right hip
CPT/HCPCS: 73502; 77063; 77067; 77080

== ENCOUNTER → 2023-08-07 15:12 | Outpatient (CLI) | payer MEDICARE, SELFPAY ==
--- NOTE | 2023-08-07 15:13 | DI.US.S_ITS ---
PROCEDURE: US CAROTID DOPPLER BI INDICATIONS: LEFT SUBCLAVIAN ARTERY OCCLUSION TECHNIQUE: Color and pulse Doppler interrogation was performed of both carotid systems, with image documentation and velocity measurements. COMPARISON: None. FINDINGS: Stenosis calculations are based on SRU (Society of Radiologists in Ultrasound) criteria. Right side: Brachial blood pressure: 167/68 mm Hg. Common carotid artery peak systolic velocity: 71 cm/sec. Internal carotid artery peak systolic velocity: 50 cm/sec. Internal carotid artery end diastolic velocity: 13 cm/sec. External carotid artery peak systolic velocity: 98 cm/sec. ICA/CCA peak systolic ratio: 0.7 . Barr scale imaging description: No significant plaque Percent internal carotid artery stenosis: Normal . Vertebral artery: Flow direction is antegrade. Left side: Brachial blood pressure: 126/57 mm Hg. Common carotid artery peak systolic velocity: 86 cm/sec. Internal carotid artery peak systolic velocity: 142 cm/sec. Internal carotid artery end diastolic velocity: 40 cm/sec. External carotid artery peak systolic velocity: 94 cm/sec. ICA/CCA peak systolic ratio: 1.6 . Barr scale imaging description: Mild atherosclerotic plaque Percent internal carotid artery stenosis: 50-69 percent stenosis . Vertebral artery: Flow direction is antegrade. IMPRESSION: 50-69 percent stenosis in the left carotid artery by peak systolic velocity criteria. No significant right-sided stenosis. Asymmetric blood pressures, higher on the right. Findings indicate left-sided stenosis. Dictated by: Romario Leonard M.D. on 08/07/2023 at 17:01 Approved by: Romario Leonard M.D. on 08/07/2023 at 17:04
== END ==
PROVIDERS: Family Provider Family Medicine; PCP Physician Assistant; Referring Provider Surgery; Visit Provider Surgery
DX: I65.22 Occlusion and stenosis of left carotid artery (principal); I70.8 Atherosclerosis of other arteries
CPT/HCPCS: 93880

== ENCOUNTER → 2024-01-22 11:01 | Outpatient (CLI) | payer MEDICARE, SELFPAY ==
--- NOTE | 2024-01-22 11:02 | DI.CT.S_ITS ---
PROCEDURE: CT LUNG LOW DOSE SCREENING INDICATIONS: nicotine dependence TECHNIQUE: Noncontrast 2.0-2.5 mm thick sections acquired from the pulmonary apices to the posterior costophrenic angles. 7 mm thick axial MIP, and 5 mm coronal and sagittal reformats were then acquired. For radiation dose reduction, the following was used: automated exposure control, adjustment of mA and/or kV according to patient size. COMPARISON: None. FINDINGS: Image quality: Diagnostic. Lower Neck: No enlarged lymph nodes. Thyroid: No thyroid nodules which require sonographic follow up, per consensus guidelines. Axillae: No enlarged lymph nodes. Chest Wall: Unremarkable. Bones: There is multilevel degenerative disc disease. Lungs and Pleura: No pneumothorax or pleural effusions. No consolidation or suspicious nodules. There is an area of focal bronchiectasis with bronchial wall thickening involving the right middle lobe with no evidence of a solid mass. Heart: Heart size is normal. No pericardial effusion. There are mild coronary artery calcifications. Thoracic Vessels: The aorta and pulmonary arteries demonstrate normal size. Mediastinum and [place]: No enlarged lymph nodes. Esophagus: No wall thickening. No hiatal hernia. Upper Abdomen: Visualized upper abdomen solid organs and bowel loops appear normal. There has been a prior cholecystectomy. IMPRESSION: No suspicious pulmonary nodules. LUNG-RADS 1; continued annual screening, if eligible Clinically Significant Non-pulmonary Findings: Focal bronchial wall thickening involving the right middle lobe. REFERENCE TEXT DELETE FROM FINAL REPORT ACR Lung-RADS v 1.0: 06/24/2013 release date. Dictated by: Reyna Jones M.D. on 01/22/2024 at 12:53 Approved by: Reyna Jones M.D. on 01/22/2024 at 13:10
== END ==
PROVIDERS: Family Provider Family Medicine; PCP Physician Assistant; Referring Provider Physician Assistant; Visit Provider Physician Assistant
DX: Z12.2 Encounter for screening for malignant neoplasm of respiratory organs (principal); Z87.891 Personal history of nicotine dependence; I25.10 Atherosclerotic heart disease of native coronary artery without angina pectoris
CPT/HCPCS: 71271